=== PATIENT | female | born 1985 | race Caucasian/White ===

== ENCOUNTER → 2021-05-02 12:30 | Outpatient (CLI) | payer SELFPAY ==
--- NOTE | 2021-05-02 12:40 | DI.US.S_ITS ---
PROCEDURE: US OB <= 14 WEEKS FETUS INDICATIONS: INITIAL VIABILITY DATING OUTSIDE/PRIOR DATING DATA: Last menstrual period (LMP): 03/06/2021 LMP-based estimated date of delivery (MIRTA): 12/11/2021. First dating scan (date and location): 05/02/2021. Estimated date of delivery (MIRTA) from first dating scan: 12/14/2021. TECHNIQUE: Real-time scanning was performed of the fetus and maternal pelvic organs, with image documentation. Endovaginal scanning was also performed to better visualize the fetus and maternal ovaries. COMPARISON: None. FINDINGS: Embryo: [place]-rump length measures 1.4 cm corresponding to 7 weeks 5 days. Heart rate: 155 beats per minute. Measurement variability in dating: +/- 4 weeks by LMP, +/- 7 days by mean sac diameter (use before 6 weeks gestation if crown-rump length not able to be measured), +/- 5 days by crown-rump length (up to 8 weeks 6 days gestation), +/- 7 days by crown-rump length (up to 13 weeks 6 days gestation). Maternal organs: Ovaries not identified. No adnexal masses seen. . IMPRESSION: 7 week 5 day single living IUP. Dictated by: Enrique Charles RRA Interpreted: Ariel Ruiz MD on 05/02/2021 at 13:13 Transcribed by: EDUARDA on 05/02/2021 at 13:14 Approved by: Ariel Ruiz M.D. on 05/02/2021 at 14:32
== END ==
PROVIDERS: Family Provider Nurse Practitioner Family; PCP Nurse Practitioner Family; Referring Provider Obstetrics & Gynecology; Visit Provider Obstetrics & Gynecology
DX: Z34.81 Encounter for supervision of other normal pregnancy, first trimester (principal); Z3A.01 Less than 8 weeks gestation of pregnancy
CPT/HCPCS: 76801; 76817

== ENCOUNTER → 2021-06-11 11:15 | Outpatient (CLI) | payer SELFPAY ==
[2021-06-11 13:29] LABS: Free T4, Direct Thyroxine 0.91 ng/dL (0.78-2.19)
[2021-06-11 13:43] LABS: Thyroid Stimulating Hormone 0.265 uIU/mL (0.47-4.68)
== END ==
PROVIDERS: Family Provider Nurse Practitioner Family; PCP Family Medicine; Referring Provider Obstetrics & Gynecology; Visit Provider Obstetrics & Gynecology
DX: Z34.81 Encounter for supervision of other normal pregnancy, first trimester (principal)
CPT/HCPCS: 36415; 84439; 84443

== ENCOUNTER → 2021-07-12 12:32 | Outpatient (CLI) | payer MEDICAID, SELFPAY ==
[2021-07-12 13:30] LABS: Add Manual Diff / Slide Review NO; Basophils Absolute Auto 0 /uL (0-100); Basophils Percent Auto 0.3 % (0-2); Eosinophils Absolute Auto 200 /uL (0-450); Eosinophils Percent Auto 3.4 % (2-4); Hemoglobin 12.9 g/dL (12.0-16.0); Lymphocytes Absolute Auto 1400 /uL (1100-4500); Lymphocytes Percent Auto 19.3 % (25-40); Mean Corpuscular Hemoglobin 31.1 PG (26-34); Mean Corpuscular Volume 88.8 fL (80-100); Monocytes Absolute Auto 400 /uL (0-900); Monocytes Percent Auto 5.3 % (3-14); Neutrophils Absolute Auto 5200 /uL (1500-7000); Neutrophils Percent Auto 71.7 % (50-75); Platelet Count 246 X10^3/uL (150-400); Red Blood Cell Count 4.17 X10^6/uL (4.0-5.2); Red Cell Distribution Width 12.9 % (11.6-14.8); White Blood Cell Count 7.3 X10^3/uL (4.5-11.0)
[2021-07-12 13:42] LABS: Appearance Urine UA CLEAR; Bilirubin Urine UA NEGATIVE (NEGATIVE); Color Urine UA YELLOW; Glucose Urine UA NEGATIVE (Negative); Ketones Urine UA NEGATIVE (NEGATIVE); Leukocyte Esterase Urine UA TRACE (NEGATIVE); Nitrite Urine UA NEGATIVE (Negative); Occult Blood Urine UA NEGATIVE (Negative); Protein Urine UA TRACE (Negative); Specific Gravity Urine UA 1.025 (1.000-1.035); Urobilinogen Urine UA 0.2 E.U./dL (0.2)
[2021-07-12 13:54] LABS: Bacteria Urine None Seen; Culture Indicated Urine Cult Not Indicated; RBC Urine None Seen (0-5/HPF); Squamous Epithelial Cell Urine 10-30 /HPF (0-5/HPF); WBC Urine None Seen (0-5/HPF)
[2021-07-12 15:36] LABS: Hepatitis B Surface Antigen NEGATIVE s/c (NEGATIVE); Rubella Antibody IgG 3.7 IU/mL (>15)
[2021-07-12 15:54] LABS: HIV 1 & 2 Ab/Ag 4th Gen Combo NEGATIVE (NEGATIVE); Hep C Virus Ab w/Reflex Quant NEGATIVE s/c (NEGATIVE)
[2021-07-13 08:21] LABS: Varicella IgG Antibody 1429 index (Immune >165)
[2021-07-13 14:13] LABS: HSV 2 IGG AB 1.66 index (0.00-0.90); RPR Screen Non Reactive (Non Reactive)
[2021-07-14 19:47] LABS: AFP, Serum 45.5 ng/mL (.); Estriol, Free 1.42 ng/mL (.); Inhibin A, Dimeric 171.87 pg/mL (.); Inhibin A, MoM 1.46 (.); Maternal Ethnicity Caucasian (.); Maternal Weight 261 lbs (.); Number of Fetuses No (.); OSBR Risk 1 IN 3810 (.); Results Report (.); Test Results *Screen Negative* (.); hCG, MoM 0.57 (.); hCG, Serum 11331 mIU/mL (.)
== END ==
PROVIDERS: Family Provider Nurse Practitioner Family; PCP Family Medicine; Referring Provider Obstetrics & Gynecology; Visit Provider Obstetrics & Gynecology
DX: Z34.82 Encounter for supervision of other normal pregnancy, second trimester; Z3A.18 18 weeks gestation of pregnancy; Z34.81 Encounter for supervision of other normal pregnancy, first trimester
CPT/HCPCS: 36415; 80055; 81003; 81015; 82105; 82677; 84702; 86336; 86695; 86696; 86787; 86803; 86850; 86900; 86901; 87086; 87389

== ENCOUNTER → 2021-08-02 11:39 | Outpatient (CLI) | payer MEDICAID, SELFPAY ==
--- NOTE | 2021-08-02 11:40 | DI.US.S_ITS ---
PROCEDURE: US OB >= 14 WEEKS FETUS INDICATIONS: anatomy scan OUTSIDE/PRIOR DATING DATA: Last menstrual period (LMP): 03/06/2021. LMP-based estimated date of delivery (MIRTA): 12/11/2021. First dating scan (date and location): 05/02/2021. Estimated date of delivery (MIRTA) from first dating scan: 12/14/2021. TECHNIQUE: Real-time scanning was performed of the fetus, with image documentation and biometric measurements. COMPARISON: [facility], US, OB >= 14 WEEKS FETUS, 07/12/2021, 13:59. FINDINGS: General: A single living intrauterine gestation is present. Presentation: Breech. Placenta: Placental position is anterior , without previa. Amniotic fluid index: 14.7 cm, normal range is 5-24 cm. heart rate: 162 beats per minute. Maternal cervical canal: 4.5 cm long. Normal lower limit is 2.5 cm. biometrics: Biparietal diameter: 5.0 cm 21 weeks 0 days Head circumference: 18.7 cm 21 weeks 0 days Abdominal circumference: 16.2 cm 21 weeks 2 days Femur length: 3.5 cm 21 weeks 0 days Composite gestational age from present scan: 21 weeks 1 day Composite gestational age from initial scan: 20 weeks 6 days Estimated weight and percentile: 402 g 61st percentile Anatomic survey: Neuro: Ventricles are non-dilated at less than 10 mm. Cisterna magna is normal at 3-11 mm. Cerebellum is normal in size and morphology. Nuchal skin fold: Normal at less than 6 mm between 14-21 weeks gestational age. Face: Nose and lips, facial profile are normal. Spine: Not well visualized Heart not well visualized. Diaphragm: Diaphragm is intact. Stomach: Not well visualized Kidneys: Not well visualized Cord: Not well visualized. 2 vessel cord appears to be present. Bladder: Normal in size. Extremities: Hands and feet of the right upper limb are not well visualized. Left upper limb is not well seen. IMPRESSION: Single live intrauterine with ultrasound gestational age today of 20 weeks 5 days. There is appropriate interval growth. Multiple portions of the anatomic survey are not well visualized. Short interval imaging follow-up is recommended for additional evaluation. We strive to produce accurate, complete, and clear reports of imaging services. To assist us in improving patient care, this report was composed using standard report templates and voice recognition software. Therefore, it may contain abnormal punctuation, insertions and/or omissions. Occasional wrong-word or sound-alike substitutions may occur. Though we review the report and make efforts to correct it, we do recommend that the report be read carefully in proper context to recognize any text inaccuracies. Dictated by: Dionne rKishnan M.D. on 08/02/2021 at 17:20 Approved by: Dionne Krishnan M.D. on 08/02/2021 at 17:23
== END ==
PROVIDERS: Family Provider Nurse Practitioner Family; PCP Family Medicine; Referring Provider Obstetrics & Gynecology; Visit Provider Obstetrics & Gynecology
DX: Z34.82 Encounter for supervision of other normal pregnancy, second trimester (principal); Z3A.20 20 weeks gestation of pregnancy
CPT/HCPCS: 76811

== ENCOUNTER → 2021-09-05 11:46 | Outpatient (CLI) | payer MEDICAID, SELFPAY ==
[2021-09-05 12:28] LABS: Hematocrit 37.2 % (36-46); Hemoglobin 12.8 g/dL (12.0-16.0)
== END ==
PROVIDERS: PCP Family Medicine; Referring Provider Obstetrics & Gynecology; Visit Provider Obstetrics & Gynecology
DX: Z34.82 Encounter for supervision of other normal pregnancy, second trimester (principal); Z3A.26 26 weeks gestation of pregnancy
CPT/HCPCS: 36415; 82948; 85014; 85018; 86850

== ENCOUNTER 2021-09-18 15:33 | Observation (INO) | payer MEDICAID, SELFPAY ==
[2021-09-18 16:35] LABS: Add Manual Diff / Slide Review NO; Basophils Absolute Auto 100 /uL (0-100); Basophils Percent Auto 0.6 % (0-2); Eosinophils Absolute Auto 200 /uL (0-450); Eosinophils Percent Auto 2.1 % (2-4); Hematocrit 36.4 % (36-46); Hemoglobin 12.1 g/dL (12.0-16.0); Lymphocytes Absolute Auto 1700 /uL (1100-4500); Mean Corpuscular HGB Conc 33.2 % (30-36); Mean Corpuscular Hemoglobin 30.5 PG (26-34); Mean Corpuscular Volume 91.6 fL (80-100); Monocytes Absolute Auto 500 /uL (0-900); Monocytes Percent Auto 5.3 % (3-14); Neutrophils Absolute Auto 7400 /uL (1500-7000); Platelet Count 261 X10^3/uL (150-400); Red Blood Cell Count 3.97 X10^6/uL (4.0-5.2); Red Cell Distribution Width 13.9 % (11.6-14.8); White Blood Cell Count 9.9 X10^3/uL (4.5-11.0)
[2021-09-18 16:57] LABS: Creatinine Urine Random 9.6 mg/dL; Protein (Total) Urine Random 13 mg/dL (0-12); Protein Creatinine Ratio Urine 1.35 GRAM/24H
[2021-09-18 17:13] LABS: Free T4, Direct Thyroxine 1.02 ng/dL (0.78-2.19)
[2021-09-18 17:27] LABS: Thyroid Stimulating Hormone 0.086 uIU/mL (0.47-4.68)
[2021-09-18 17:46] LABS: Aspartate Aminotransferase 17 IU/L (14-36); BUN Creatinine Ratio 10.9 (6-22); Blood Urea Nitrogen 5 mg/dL (7-17); Estimated Glomerular Filt Rate > 60.0 mL/min (>60); Uric Acid 3.1 mg/dL (2.5-6.2)
== END 2021-09-18 17:50 | disposition home or self-care (01) ==
PROVIDERS: Admitting Provider Obstetrics & Gynecology; PCP Family Medicine; Referring Provider Obstetrics & Gynecology; Visit Provider Obstetrics & Gynecology
DX: O13.3 Gestational [pregnancy-induced] hypertension without significant proteinuria, third trimester (principal); O99.283 Endocrine, nutritional and metabolic diseases complicating pregnancy, third trimester; E07.9 Disorder of thyroid, unspecified; Z3A.28 28 weeks gestation of pregnancy
CPT/HCPCS: 36415; 59025; 59050; 82570; 84156; 84439; 84443; 84450; 84550; 85025; G0378; G0379

== ENCOUNTER 2021-10-04 15:48 | Outpatient (CLI) | payer MEDICAID, SELFPAY | END 2021-10-04 16:45 | disposition home or self-care (01) | LOC: OB 10-09 07:43 | PROVIDERS: PCP Family Medicine; Referring Provider Obstetrics & Gynecology; Visit Provider Obstetrics & Gynecology | DX: O10.913 Unspecified pre-existing hypertension complicating pregnancy, third trimester (principal); O99.333 Smoking (tobacco) complicating pregnancy, third trimester; F17.210 Nicotine dependence, cigarettes, uncomplicated; O99.283 Endocrine, nutritional and metabolic diseases complicating pregnancy, third trimester; E07.9 Disorder of thyroid, unspecified; Z3A.30 30 weeks gestation of pregnancy | CPT/HCPCS: 59025; 87491; 87591; G0378; G0379 ==

== ENCOUNTER → 2021-10-04 19:34 | Outpatient (ROUT) | payer MEDICAID, SELFPAY ==
[2021-10-04 21:15] LABS: Urine N gonorrhoeae NOT DETECTED
[2021-10-04 21:32] LABS: Urine Chlamydia NOT DETECTED
== END ==
PROVIDERS: PCP Family Medicine; Visit Provider Obstetrics & Gynecology
DX: Z34.83 Encounter for supervision of other normal pregnancy, third trimester (principal); Z3A.30 30 weeks gestation of pregnancy
CPT/HCPCS: 87491; 87591

== ENCOUNTER 2021-10-11 10:42 | Outpatient (CLI) | payer MEDICAID, SELFPAY ==
--- NOTE | 2021-10-11 11:57 | P.TNLD_ITS ---
Visit Information Visit Information Date of evaluation: 10/11/21 Primary OB Provider: Grisel Foster On-call OB Provider: Cecelia Calzada Reason for Evaluation: Yes non-stress test Comments/Additional reasons for admission: 36-year-old at 31 weeks and 2 days here for NST for 2 vessel cord, hypothyroidism and gestational hypertension. Vital Signs Vital Signs: Temperature 98.0? blood pressure 116/66 heart rate 78 PFSH Medical History Abnormal Pap smear of cervix (~2012) Anxiety (~2000) Chicken pox (~1995) Constipation Depression (~2000) Diverticulitis (~2020) Frequent headaches Genital warts Heavy menstrual period (~1997) Hemorrhoid (~2013) Human papilloma virus Hypertension (~2013) Hypertension affecting in second trimester (~2013) Hypothyroid (~2006) Painful menstrual periods depression (~2014) Psoriasis (~2013) PTSD (post-traumatic stress disorder) (~1999) Surgical History Anesthesia History of carpal tunnel repair (~2009) History of colposcopy (~2008) History of surgical removal of ganglion cyst Status post appendectomy (~12/1999) [place] teeth extracted (~2003) Family History Father Age: 65 Hypertension High cholesterol Mental health problem Grandmother Cancer Diabetes mellitus Heart disease Hypertension Mother Age: 59 Breast cancer Heart disease Hypertension High cholesterol Mental health problem Stroke Sister Age: 37 Hypertension Grandfather Alzheimer's dementia Grandmother Family history unknown Grandfather Family history unknown Social History marital status: number of children: 1 household members: spouse, family (Her mother.) and children lives independently: Yes caregiver/support person: No pets and animals: Yes (1 cat, 1 dog, 2 rats:) education level: high school (GED.) occupational status: unemployed current occupational exposures/hazards: No special leland needs: No seatbelt use: always do you feel safe at home: Yes Smoking Status: Current some day smoker (has cut way back, has patches. Currently 2-3 cigs/day.) Tobacco: How many years used: 10 quit status: considering quitting second hand exposure: No (Her mom smokes outside.) alcohol intake: former (Pre-: 3 x / week, 3-6 beers.) substance use type: marijuana (Smokes marijuana: daily, a couple puffs. Helps w/ nausea & sleep.) during the past year weight has: remained stable well-balanced diet: about half the time daily servings fruits/ve-4 caffeine: Yes (1-2 cups coffee/day.) Type(s) of exercise: walking and normal ROM and activity (Active with yard work on 6 [place]. Thinking about joining a gym to swim.) frequency: 3-4 times per week duration: 15-30 minutes/day Evaluation Evaluation Baseline heart rate: 140 Variability: Moderate (11-25) monitor accelerations: Present Monitor Decelerations: Absent Category of Tracing: Reactive Diagnosis, Plan/Disposition Final Diagnosis (1) 31 weeks gestation of : Status: Acute (2) Hypertension: Status: Acute (3) Hypothyroid in , antepartum: Status: Acute (4) Two vessel cord: Status: Acute Plan/Disposition Plan: 36-year-old at 31 weeks and 2 days with complicated by gestational hypertension, hypothyroidism and 2 vessel cord. NST reactive today. Patient was without complaints. Follow-up in clinic as scheduled return if needed. OB Disposition: home
== END 2021-10-11 12:05 | disposition home or self-care (01) ==
LOC: LABOR 11:19 → OB 10-16 07:30
PROVIDERS: PCP Family Medicine; Referring Provider Family Medicine; Visit Provider Family Medicine
DX: O13.3 Gestational [pregnancy-induced] hypertension without significant proteinuria, third trimester (principal); O99.283 Endocrine, nutritional and metabolic diseases complicating pregnancy, third trimester; O35.8XX0 Maternal care for other (suspected) fetal abnormality and damage, not applicable or unspecified; E03.9 Hypothyroidism, unspecified; Z3A.31 31 weeks gestation of pregnancy
CPT/HCPCS: 59025; G0378; G0379

== ENCOUNTER 2021-10-18 14:07 | Observation (INO) | payer MEDICAID, SELFPAY | END 2021-10-18 14:10 | disposition home or self-care (01) | PROVIDERS: Admitting Provider Obstetrics & Gynecology; PCP Family Medicine; Referring Provider Obstetrics & Gynecology; Visit Provider Obstetrics & Gynecology | DX: O13.2 Gestational [pregnancy-induced] hypertension without significant proteinuria, second trimester (principal); O99.282 Endocrine, nutritional and metabolic diseases complicating pregnancy, second trimester; E07.9 Disorder of thyroid, unspecified; O35.8XX0 Maternal care for other (suspected) fetal abnormality and damage, not applicable or unspecified; Z3A.23 23 weeks gestation of pregnancy | CPT/HCPCS: 59025; G0378; G0379 ==

== ENCOUNTER 2021-10-25 12:00 | Outpatient (CLI) | payer MEDICARE, MEDICAID, SELFPAY ==
--- NOTE | 2021-10-25 13:22 | PM.OBTRLD ---
Visit Information Visit Information Date of evaluation: 10/25/21 Primary OB Provider: Grisel Foster On-call OB Provider: Cecelia Calzada Reason for Evaluation: Yes non-stress test Comments/Additional reasons for admission: 36-year-old at 33 weeks and 2 days here for NST for 2 vessel cord, hypothyroidism and gestational hypertension. Vital Signs Vital Signs: Blood pressure 129/84 heart rate 84 PFSH Medical History Abnormal Pap smear of cervix (~2012) Anxiety (~2000) Chicken pox (~1995) Constipation Depression (~2000) Diverticulitis (~2020) Frequent headaches Genital warts Heavy menstrual period (~1997) Hemorrhoid (~2013) Human papilloma virus Hypertension (~2013) Hypertension affecting in second trimester (~2013) Hypothyroid (~2006) Painful menstrual periods depression (~2014) Psoriasis (~2013) PTSD (post-traumatic stress disorder) (~1999) Surgical History Anesthesia History of carpal tunnel repair (~2009) History of colposcopy (~2008) History of surgical removal of ganglion cyst Status post appendectomy (~12/1999) [place] teeth extracted (~2003) Family History Father Age: 65 Hypertension High cholesterol Mental health problem Grandmother Cancer Diabetes mellitus Heart disease Hypertension Mother Age: 59 Breast cancer Heart disease Hypertension High cholesterol Mental health problem Stroke Sister Age: 37 Hypertension Grandfather Alzheimer's dementia Grandmother Family history unknown Grandfather Family history unknown Social History marital status: number of children: 1 household members: spouse, family (Her mother.) and children lives independently: Yes caregiver/support person: No pets and animals: Yes (1 cat, 1 dog, 2 rats:) education level: high school (GED.) occupational status: unemployed current occupational exposures/hazards: No special leland needs: No seatbelt use: always do you feel safe at home: Yes Smoking Status: Current some day smoker (has cut way back, has patches. Currently 2-3 cigs/day.) Tobacco: How many years used: 10 quit status: considering quitting second hand exposure: No (Her mom smokes outside.) alcohol intake: former (Pre-: 3 x / week, 3-6 beers.) substance use type: marijuana (Smokes marijuana: daily, a couple puffs. Helps w/ nausea & sleep.) during the past year weight has: remained stable well-balanced diet: about half the time daily servings fruits/ve-4 caffeine: Yes (1-2 cups coffee/day.) Type(s) of exercise: walking and normal ROM and activity (Active with yard work on 6 acres. Thinking about joining a gym to swim.) frequency: 3-4 times per week duration: 15-30 minutes/day Evaluation Evaluation Baseline heart rate: 140 Variability: Moderate (11-25) monitor accelerations: Present Monitor Decelerations: Absent Category of Tracing: Reactive Diagnosis, Plan/Disposition Final Diagnosis (1) Hypertension affecting : Status: Acute (2) Two vessel cord: Status: Acute (3) Hypothyroid in , antepartum: Status: Acute (4) 33 weeks gestation of : Status: Acute Plan/Disposition Plan: 36-year-old at 33 weeks and 2 days with complicated by gestational hypertension, hypothyroidism and 2 vessel cord.? NST reactive today.? Patient was without complaints.? Follow-up in clinic as scheduled return if needed.? OB Disposition: home
== END 2021-10-25 13:12 | disposition home or self-care (01) ==
LOC: LABOR 13:06 → OB 10-30 07:58
PROVIDERS: PCP Family Medicine; Referring Provider Obstetrics & Gynecology; Visit Provider Obstetrics & Gynecology
DX: O13.3 Gestational [pregnancy-induced] hypertension without significant proteinuria, third trimester (principal); O35.8XX0 Maternal care for other (suspected) fetal abnormality and damage, not applicable or unspecified; O99.283 Endocrine, nutritional and metabolic diseases complicating pregnancy, third trimester; E03.9 Hypothyroidism, unspecified; Z3A.33 33 weeks gestation of pregnancy
CPT/HCPCS: 59025; G0378; G0379

== ENCOUNTER 2021-10-28 16:55 | Outpatient (CLI) | payer MEDICARE, MEDICAID, SELFPAY ==
[2021-10-28] MEDS: NIFEdipine 10 MG CAPSULE PO (17:45)
--- NOTE | 2021-10-28 18:02 | PM.OBHP.IH.1 ---
OB HPI Date/Time Date of admission: 10/28/21 Date Patient Seen: 10/28/21 Time Patient Seen: 18:03 History of Present Condition Chief complaint: high BP concerns MIRTA Calculator Estimated Delivery Date Method Current WG Current Estimate 12/11/21 LMP (Certain) 33w 5d Other Estimates 12/14/21 Ultrasound #1 33w 2d 12/14/21 Ultrasound #2 33w 2d Estimated Gestational Age (weeks): 33 : 2 Para: 1 Narrative: This patient is a 36yo @33+5 by LMP concordant with 1st tri US, presenting to the center with preeclampsia with severe features. The patient reports that she was being managed for elevated BPs as an outpatient since the late 2nd trimester, on labetalol 100mg BID to good effect. She reports that she felt well until a few weeks ago, when she developed intermittent nausea. For the past few days she has had intermittent headaches, and this morning developed spots in her vision, RUQ discomfort and a sensation of fullness in her head. Her BPs at home were newly 150s/90s, and she presented to the center. She reports good movement, no LOF or VB, and no contractions. She has a history of HTN at the end of her last though no preeclampsia diagnosis, and she delivered vaginally at term. Records review indicates a urine protein/creatinine ratio of 1.35 on 09/18/21. The patient passed her glucose screen, and has had an otherwise uncomplicated . She has a history of hypothyroidism but denies any other significant medical, surgical, or family history. She has not been on baby ASA. care: good care, initiated at week # (9) and pounds weight gain Dating criteria OB: LMP confirmed by 1st trimester US Ultrasounds: abnormal US findings (per report, poor visualization of upper extremities.) Obstetrical complications: preeclampsia Medical complications OB: none External History : 2 Para: 1 Estimated Date of Delivery: 03/06/21 Preadmission Labs Last OB Lab Results: Blood Type O Negative 07/12/21 12:48 07/12/21 Antibody Screen Negative 09/05/21 11:54 09/05/21 Hematocrit 36.4 % (36-46) 09/18/21 16:20 09/18/21 Hemoglobin 12.1 g/dL (12.0-16.0) 09/18/21 16:20 09/18/21 Hepatitis B Surface Antigen Negative s/c (NEGATIVE) 07/12/21 12:48 07/12/21 Hepatitis C Antibody Negative s/c (NEGATIVE) 07/12/21 12:48 07/12/21 Rubella Antibody 3.7 IU/mL (>15) L 07/12/21 12:48 07/12/21 Varicella-Zoster IgG Antibody 1429 index (Immune >165) 07/12/21 12:48 07/12/21 Glucose Tolerance Testin hr (71) -: Chlamydia screen: negative, Gonorrhea screen: negative and Urine: negative Genetic Screens: Quad screen: Normal External Labs -: Urine: negative Prior (ies) Past Pregnancies Del. 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 induced hyper- [place]ad[place] Delivery Date: 07/08/14 Last Updated by: Basia Kuo R.N. Bedrest x 1 month for HTN. Induction for high BP, 5 day process. Tight nuchal. Tear with repair, healed well. Passed out in bathroom first time up. PPD with BF challenges: hard for her emotionally. Mirena IUD @ 6wks PP, made PPD worse. Evaluation Evaluation Baseline heart rate: 140 Variability: Average (6-10) monitor accelerations: Absent Monitor Decelerations: Absent Status: Category l Comments: Monitoring limited by body habitus and positioning. Bedside ultrasound performed, though significantly limited by body habitus, positioning, and copious movement. BPP 8/8, JACINTA 32. EFW 2470g, 70%. Trevin breech to transverse presentation, variable during exam. Anterior placenta. [facility] Medical History Abnormal Pap smear of cervix (~2012) Anxiety (~2000) Chicken pox (~1995) Constipation Depression (~2000) Diverticulitis (~2020) Frequent headaches Genital warts Heavy menstrual period (~1997) Hemorrhoid (~2013) Human papilloma virus Hypertension (~2013) Hypertension affecting in second trimester (~2013) Hypothyroid (~2006) Painful menstrual periods depression (~2014) Psoriasis (~2013) PTSD (post-traumatic stress disorder) (~1999) Surgical History Anesthesia History of carpal tunnel repair (~2009) History of colposcopy (~2008) History of surgical removal of ganglion cyst Status post appendectomy (~12/1999) [place] teeth extracted (~2003) Family History Father Age: 65 Hypertension High cholesterol Mental health problem Grandmother Cancer Diabetes mellitus Heart disease Hypertension Mother Age: 59 Breast cancer Heart disease Hypertension High cholesterol Mental health problem Stroke Sister Age: 37 Hypertension Grandfather Alzheimer's dementia Grandmother Family history unknown Grandfather Family history unknown Social History marital status: number of children: 1 household members: spouse, family (Her mother.) and children lives independently: Yes caregiver/support person: No pets and animals: Yes (1 cat, 1 dog, 2 rats:) education level: high school (GED.) occupational status: unemployed current occupational exposures/hazards: No special leland needs: No seatbelt use: always do you feel safe at home: Yes Smoking Status: Current some day smoker (has cut way back, has patches. Currently 2-3 cigs/day.) Tobacco: How many years used: 10 quit status: considering quitting second hand exposure: No (Her mom smokes outside.) alcohol intake: former (Pre-: 3 x / week, 3-6 beers.) substance use type: marijuana (Smokes marijuana: daily, a couple puffs. Helps w/ nausea & sleep.) during the past year weight has: remained stable well-balanced diet: about half the time daily servings fruits/ve-4 caffeine: Yes (1-2 cups coffee/day.) Type(s) of exercise: walking and normal ROM and activity (Active with yard work on [place]. Thinking about joining a gym to swim.) frequency: 3-4 times per week duration: 15-30 minutes/day Meds Home Medications and Allergies Home Medications Medication Instructions Recorded Confirmed Type hydrocortisone 2.5 % topical cream 1 gm TOPICAL BIDP PRN #30 gm 11/15/16 04/28/22 Rx levothyroxine 175 mcg capsule 175 mcg PO DAILY 04/12/21 10/18/21 History liothyronine 25 mcg tablet 25 mcg PO DAILY 04/12/21 10/18/21 History prenat.vits,kanchan,ohc-jtyd-yqfhu 1 tab PO DAILY 04/12/21 10/18/21 History labetalol 100 mg tablet 100 mg PO BID #180 tab 09/05/21 10/18/21 Rx valacyclovir 500 mg tablet 500 mg PO DAILY #30 tab 09/05/21 10/18/21 Rx (Valtrex) hydrocortisone 2.5 % topical cream 1 applic NE BID-QID PRN #30 g 10/18/21 10/18/21 Rx with perineal applicator (Anusol-HC) Allergies Allergy/AdvReac Type Severity Reaction Status Date / Time No Known Drug Allergies Allergy Verified 10/18/21 13:14 Review of Systems Constitutional Constitutional: Reports system reviewed and no additional complaints, except as documented Cardiovascular Cardiovascular: Reports system reviewed and no additional complaints, except as documented Respiratory Respiratory: Reports system reviewed and no additional complaints, except as documented Gastrointestinal Gastrointestinal: Reports as per HPI Genitourinary Genitourinary: Reports as per HPI Musculoskeletal Musculoskeletal: Reports as per HPI Neurologic Neurologic: Reports as per HPI OB Exam Resp Effort & Inspection: normal respiratory effort Auscultation: clear to auscultation bilaterally Cardio Rate: regular rate Rhythm: regular rhythm Extremities Lower extremity: Yes edema Laterality: bilateral edema degree: 3+ DTR's: Rt Patellar: 2+ and Lt Patellar: 2+ GI Palpation: Yes soft and Yes tender (Mild RUQ tenderness) Assessment and Plan Assessment and Plan Assessment and Plan narrative: This patient is admitted with sustained severe range blood pressures. Her blood pressure has been brought below the severe range with 10mg PO IR nifedipine, as staff is still attempting to start an IV. - Patient for 4g MgSo4 loading dose, 2g/hr - CBC, CMP, uric acid, LDH, urine protein/creatinine ratio sent - 12mg IM betamethasone now - Covid and GBS tests to be collected - BPs q15min, cEFM, toco - Initiating transfer to tertiary care [place] with NICU
[2021-10-28] MEDS: BETAMETHASONE 30 MG/5 ML MDV 12 MG IM (18:40)
[2021-10-28] MEDS: LACTATED RINGERS 1,000 ML 100 ML IV (19:00)
[2021-10-28 19:02] LABS: Add Manual Diff / Slide Review NO; Basophils Absolute Auto 100 /uL (0-100); Basophils Percent Auto 0.7 % (0-2); Eosinophils Absolute Auto 200 /uL (0-450); Eosinophils Percent Auto 1.6 % (2-4); Hemoglobin 13.1 g/dL (12.0-16.0); Lymphocytes Absolute Auto 1800 /uL (1100-4500); Lymphocytes Percent Auto 17.4 % (25-40); Mean Corpuscular HGB Conc 33.7 % (30-36); Mean Corpuscular Hemoglobin 29.9 PG (26-34); Mean Corpuscular Volume 88.8 fL (80-100); Monocytes Absolute Auto 500 /uL (0-900); Monocytes Percent Auto 4.8 % (3-14); Neutrophils Absolute Auto 7900 /uL (1500-7000); Neutrophils Percent Auto 75.5 % (50-75); Platelet Count 265 X10^3/uL (150-400); Red Cell Distribution Width 13.6 % (11.6-14.8); White Blood Cell Count 10.4 X10^3/uL (4.5-11.0)
[2021-10-28] MEDS: MAGNESIUM SULFATE 4 GM/100 ML PIGGYBACK IV (19:06)
[2021-10-28 19:25] LABS: COVID19 -Nasal RAPID Negative (Negative)
[2021-10-28 19:25] LABS: Alanine Aminotransferase 12 IU/L (<35); Albumin 3.8 g/dL (3.5-5.0); Albumin Globulin Ratio 1.1 (1.0-2.8); Alkaline Phosphatase 105 U/L (38-126); Aspartate Aminotransferase 17 IU/L (14-36); BUN Creatinine Ratio 15.9 (6-22); Bilirubin Total 0.3 mg/dL (0.2-1.3); Blood Urea Nitrogen 7 mg/dL (7-17); Calcium 9.7 mg/dL (8.4-10.2); Carbon Dioxide 23 mmol/L (22-32); Chloride 107 mmol/L (98-107); Estimated Glomerular Filt Rate > 60 mL/min (>60); Globulin 3.4 g/dL (1.7-4.1); Glucose 91 mg/dL (70-100); HEMOLYSIS < 15 (0-50); Lactate Dehydrogenase 336 U/L (313-618); Potassium 3.9 mmol/L (3.4-5.1); Sodium 135 mmol/L (137-145); Total Protein 7.2 g/dL (6.3-8.2); Uric Acid 3.2 mg/dL (2.5-6.2)
[2021-10-28 19:25] LABS: Creatinine Urine Random 22.6 mg/dL; Protein (Total) Urine Random 12 mg/dL (0-12); Protein Creatinine Ratio Urine 0.53 GRAM/24H
[2021-10-28] MEDS: MAGNESIUM SULFATE 20 GM/500 ML IV.SOLN IV (20:20)
[2021-10-28] MEDS: LABETALOL 100 MG TABLET PO (20:40)
[2021-10-28 21:35] LABS: Strep Grp B PCR NEG for Grp B Strep
[2021-10-29 00:54] LABS: UR Morphine/Opiate cutoff 300 Negative (Negative); Ur Creatinine 20 (Normal); Ur Specific Gravity 1.015 (Normal); Urine Amphetamines Negative (Negative); Urine Barbiturates Negative (Negative); Urine Benzodiazepines Negative (Negative); Urine Cocaine Negative (Negative); Urine MDMA Negative (Negative); Urine Methadone Negative (Negative); Urine Methamphetamines Negative (Negative); Urine Oxycodone Negative (Negative); Urine Phencyclidine Negative (Negative); Urine Tetrahydrocannabinol Negative (Negative); Urine Tricyclic Antidepressant Negative (Negative); Urine pH 5 (Normal)
== END 2021-10-28 22:35 | disposition home or self-care (01) ==
LOC: LABOR 18:13 → OB 10-30 08:01
PROVIDERS: PCP Family Medicine; Referring Provider Obstetrics & Gynecology; Visit Provider Obstetrics & Gynecology
DX: O14.13 Severe pre-eclampsia, third trimester (principal); Z3A.33 33 weeks gestation of pregnancy; Z20.822 Contact with and (suspected) exposure to COVID-19
CPT/HCPCS: 59025; 59050; 76815; 80053; 80305; 82570; 83615; 84156; 84550; 85025; 86850; 86870; 86900; 86901; 87081; 87147; 87635; 87653; 96360; C9803; G0378; G0379; J0702; J3475

== ENCOUNTER 2021-11-02 10:05 | Observation (INO) | payer MEDICARE, MEDICAID, SELFPAY ==
--- NOTE | 2021-11-02 11:49 | DI.US.S_ITS ---
PROCEDURE: US OB BIOPHYSICAL PROFILE INDICATIONS: DECREASED MOVEMENT; FLUID CHECK OUTSIDE/PRIOR DATING DATA: Last menstrual period (LMP): 03/06/2021. LMP-based estimated date of delivery (MIRTA): 12/11/2021. First dating scan (date and location): 05/02/2021. Estimated date of delivery (MIRTA) from first dating scan: 12/14/2021. TECHNIQUE: Real-time scanning was performed of the fetus, with image documentation and biometric measurements. Biophysical profile was also obtained. COMPARISON: [facility], , US OB >= 14 WEEKS FETUS, 10/18/2021, 13:55. [facility], , US OB >= 14 WEEKS FETUS, 10/04/2021, 15:34. [facility], , US OB >= 14 WEEKS FETUS, 09/05/2021, 11:33. [facility], US OB >= 14 WEEKS FETUS, 08/02/2021, 12:10. [facility], , US OB >= 14 WEEKS FETUS, 07/12/2021, 13:59. [facility], , US OB <= 14 WEEKS FETUS, 06/11/2021, 11:10. [facility], , US OB <= 14 WEEKS FETUS, 05/10/2021, 11:03. [facility], , US OB <= 14 WEEKS FETUS, 05/02/2021, 12:51. FINDINGS: General: A single living intrauterine gestation is present. Presentation: Transverse, head right. Placenta: Placental position is anterior , without previa. Amniotic fluid index: 24.2 cm, normal range is 5-24 cm. Single deepest vertical pocket is 8.8 cm. heart rate: 137 beats per minute. Maternal cervical canal: 4.0 cm long. Normal lower limit is 2.5 cm. biometrics: Composite gestational age from initial ultrasound: 34 weeks 0 days Biophysical profile: Tone: 2 points. Movement: 2 points. Respiration: 2 points. Largest pocket of fluid: 2 points. IMPRESSION: Single live intrauterine with ultrasound gestational age of 34 weeks 0 days. JACINTA 24.2 cm. BPP 01/28 We strive to produce accurate, complete, and clear reports of imaging services. To assist us in improving patient care, this report was composed using standard report templates and voice recognition software. Therefore, it may contain abnormal punctuation, insertions and/or omissions. Occasional wrong-word or sound-alike substitutions may occur. Though we review the report and make efforts to correct it, we do recommend that the report be read carefully in proper context to recognize any text inaccuracies. Dictated by: Dionne Krishnan M.D. on 11/02/2021 at 13:52 Approved by: Dionne Krishnan M.D. on 11/02/2021 at 13:55
--- NOTE | 2021-11-02 22:31 | PM.OBTRLD ---
Visit Information Visit Information Date of evaluation: 11/02/21 Primary OB Provider: Grisel Foster On-call OB Provider: Grisel Foster Reason for Evaluation: Yes non-stress test non-stress test reason: hypertension/pre-eclampsia [facility] Medical History Abnormal Pap smear of cervix (~2012) Anxiety (~2000) Chicken pox (~1995) Constipation Depression (~2000) Diverticulitis (~2020) Frequent headaches Genital warts Heavy menstrual period (~1997) Hemorrhoid (~2013) Human papilloma virus Hypertension (~2013) Hypertension affecting in second trimester (~2013) Hypothyroid (~2006) Painful menstrual periods depression (~2014) Psoriasis (~2013) PTSD (post-traumatic stress disorder) (~1999) Surgical History Anesthesia History of carpal tunnel repair (~2009) History of colposcopy (~2008) History of surgical removal of ganglion cyst Status post appendectomy (~12/1999) [place] teeth extracted (~2003) Family History Father Age: 65 Hypertension High cholesterol Mental health problem Grandmother Cancer Diabetes mellitus Heart disease Hypertension Mother Age: 59 Breast cancer Heart disease Hypertension High cholesterol Mental health problem Stroke Sister Age: 37 Hypertension Grandfather Alzheimer's dementia Grandmother Family history unknown Grandfather Family history unknown Social History marital status: number of children: 1 household members: spouse, family (Her mother.) and children lives independently: Yes caregiver/support person: No pets and animals: Yes (1 cat, 1 dog, 2 rats:) education level: high school (GED.) occupational status: unemployed current occupational exposures/hazards: No special leland needs: No seatbelt use: always do you feel safe at home: Yes Smoking Status: Current some day smoker (has cut way back, has patches. Currently 2-3 cigs/day.) Tobacco: How many years used: 10 quit status: considering quitting second hand exposure: No (Her mom smokes outside.) alcohol intake: former (Pre-: 3 x / week, 3-6 beers.) substance use type: marijuana (Smokes marijuana: daily, a couple puffs. Helps w/ nausea & sleep.) during the past year weight has: remained stable well-balanced diet: about half the time daily servings fruits/ve-4 caffeine: Yes (1-2 cups coffee/day.) Type(s) of exercise: walking and normal ROM and activity (Active with yard work on [place]. Thinking about joining a gym to swim.) frequency: 3-4 times per week duration: 15-30 minutes/day Evaluation Evaluation Baseline heart rate: 135 Variability: Average (6-10) monitor accelerations: Present Monitor Decelerations: Absent Comments: BPP 01/28 JACINTA 20cm Diagnosis, Plan/Disposition Plan/Disposition Plan: Assessment: 36 year old at 34+3 wks gestation with GHTN 2 vessel cord Transverse lie Reassuring BPP Plan: D/C to home on bedrest [facility] Warning signs reviewed F/U 4 days OB Disposition: home
== END 2021-11-02 12:45 | disposition home or self-care (01) ==
PROVIDERS: Admitting Provider Obstetrics & Gynecology; PCP Family Medicine; Referring Provider Obstetrics & Gynecology; Visit Provider Obstetrics & Gynecology
DX: O13.3 Gestational [pregnancy-induced] hypertension without significant proteinuria, third trimester (principal); O35.8XX0 Maternal care for other (suspected) fetal abnormality and damage, not applicable or unspecified; Z3A.34 34 weeks gestation of pregnancy
CPT/HCPCS: 59025; 59050; 76819; G0378; G0379

== ENCOUNTER 2021-11-06 11:32 | Observation (INO) | payer MEDICARE, MEDICAID, SELFPAY ==
[2021-11-06 12:20] LABS: Add Manual Diff / Slide Review NO; Basophils Absolute Auto 100 /uL (0-100); Basophils Percent Auto 0.5 % (0-2); Eosinophils Absolute Auto 200 /uL (0-450); Eosinophils Percent Auto 1.6 % (2-4); Hematocrit 36.2 % (36-46); Hemoglobin 12.4 g/dL (12.0-16.0); Lymphocytes Absolute Auto 1500 /uL (1100-4500); Lymphocytes Percent Auto 14.2 % (25-40); Mean Corpuscular HGB Conc 34.3 % (30-36); Mean Corpuscular Hemoglobin 30.4 PG (26-34); Mean Corpuscular Volume 88.6 fL (80-100); Monocytes Absolute Auto 600 /uL (0-900); Monocytes Percent Auto 6.1 % (3-14); Neutrophils Absolute Auto 8200 /uL (1500-7000); Neutrophils Percent Auto 77.6 % (50-75); Platelet Count 259 X10^3/uL (150-400); Red Blood Cell Count 4.09 X10^6/uL (4.0-5.2); White Blood Cell Count 10.6 X10^3/uL (4.5-11.0)
[2021-11-06 12:29] LABS: Creatinine Urine Random 58.7 mg/dL; Protein (Total) Urine Random 14 mg/dL (0-12); Protein Creatinine Ratio Urine 0.23 GRAM/24H
[2021-11-06 12:32] LABS: Aspartate Aminotransferase 15 IU/L (14-36); BUN Creatinine Ratio 17.8 (6-22); Blood Urea Nitrogen 8 mg/dL (7-17); Estimated Glomerular Filt Rate > 60 mL/min (>60); Uric Acid 3.3 mg/dL (2.5-6.2)
[2021-11-06] MEDS: ACETAMINOPHEN 325 MG TABLET 975 MG PO (13:32)
[2021-11-06 13:33] VITALS: BP 121/59; PULSE 89
[2021-11-06] MEDS: LABETALOL 100 MG TABLET 200 MG PO (13:33)
== END 2021-11-06 13:39 | disposition home or self-care (01) ==
PROVIDERS: Admitting Provider Obstetrics & Gynecology; PCP Family Medicine; Referring Provider Obstetrics & Gynecology; Visit Provider Obstetrics & Gynecology
DX: O10.913 Unspecified pre-existing hypertension complicating pregnancy, third trimester (principal); Z3A.35 35 weeks gestation of pregnancy
CPT/HCPCS: 36415; 59025; 82570; 84156; 84450; 84550; 85025; G0378; G0379

== ENCOUNTER 2021-11-09 11:01 | Outpatient (CLI) | payer MEDICARE, MEDICAID, SELFPAY ==
[2021-11-09 12:19] LABS: Add Manual Diff / Slide Review NO; Basophils Absolute Auto 0 /uL (0-100); Basophils Percent Auto 0.4 % (0-2); Eosinophils Absolute Auto 200 /uL (0-450); Eosinophils Percent Auto 1.5 % (2-4); Hematocrit 36.4 % (36-46); Hemoglobin 12.4 g/dL (12.0-16.0); Lymphocytes Absolute Auto 1500 /uL (1100-4500); Lymphocytes Percent Auto 13.8 % (25-40); Mean Corpuscular HGB Conc 33.9 % (30-36); Mean Corpuscular Hemoglobin 30.1 PG (26-34); Mean Corpuscular Volume 88.7 fL (80-100); Monocytes Absolute Auto 600 /uL (0-900); Monocytes Percent Auto 5.8 % (3-14); Neutrophils Absolute Auto 8300 /uL (1500-7000); Neutrophils Percent Auto 78.5 % (50-75); Platelet Count 253 X10^3/uL (150-400); Red Blood Cell Count 4.11 X10^6/uL (4.0-5.2); Red Cell Distribution Width 14.1 % (11.6-14.8); White Blood Cell Count 10.5 X10^3/uL (4.5-11.0)
[2021-11-09 12:31] LABS: Alanine Aminotransferase 13 IU/L (<35); Albumin 3.4 g/dL (3.5-5.0); Albumin Globulin Ratio 1.1 (1.0-2.8); Alkaline Phosphatase 96 U/L (38-126); Aspartate Aminotransferase 15 IU/L (14-36); BUN Creatinine Ratio 12.7 (6-22); Bilirubin Total 0.2 mg/dL (0.2-1.3); Blood Urea Nitrogen 7 mg/dL (7-17); Calcium 9.4 mg/dL (8.4-10.2); Carbon Dioxide 22 mmol/L (22-32); Chloride 107 mmol/L (98-107); Estimated Glomerular Filt Rate > 60 mL/min (>60); Globulin 3.1 g/dL (1.7-4.1); Glucose 124 mg/dL (70-100); HEMOLYSIS < 15 (0-50); Potassium 3.7 mmol/L (3.4-5.1); Sodium 133 mmol/L (137-145); Total Protein 6.5 g/dL (6.3-8.2)
[2021-11-09 12:52] LABS: Creatinine Urine Random 107.3 mg/dL; Protein (Total) Urine Random 9 mg/dL (0-12); Protein Creatinine Ratio Urine 0.08 GRAM/24H
== END 2021-11-09 13:12 | disposition home or self-care (01) ==
LOC: LABOR 12:05 → OB 11-12 16:02
PROVIDERS: PCP Family Medicine; Referring Provider Obstetrics & Gynecology; Visit Provider Obstetrics & Gynecology
DX: O14.93 Unspecified pre-eclampsia, third trimester (principal); O35.8XX0 Maternal care for other (suspected) fetal abnormality and damage, not applicable or unspecified; Z3A.35 35 weeks gestation of pregnancy
CPT/HCPCS: 36415; 59025; 59050; 80053; 82570; 84156; 85025; G0378; G0379

== ENCOUNTER 2021-11-12 13:06 | Outpatient (CLI) | payer MEDICARE, MEDICAID, SELFPAY | END 2021-11-12 14:28 | disposition home or self-care (01) | LOC: LABOR 13:39 → OB 11-15 07:12 | PROVIDERS: PCP Family Medicine; Referring Provider Obstetrics & Gynecology; Visit Provider Obstetrics & Gynecology | DX: O11.3 Pre-existing hypertension with pre-eclampsia, third trimester (principal); O10.013 Pre-existing essential hypertension complicating pregnancy, third trimester; O35.8XX0 Maternal care for other (suspected) fetal abnormality and damage, not applicable or unspecified; Z3A.35 35 weeks gestation of pregnancy | CPT/HCPCS: 59025; G0378; G0379 ==

== ENCOUNTER 2021-11-15 10:27 | Inpatient (IN) | payer MEDICARE, MEDICAID, SELFPAY ==
--- NOTE | 2021-11-15 | PATH_ITS ---
[facility] Accession Number: [id number] . 01 Material submitted: . fallopian tube - BILATERAL TUBES . 01 Diagnosis: Bilateral Tubes, Bilateral Salpingectomy: Fallopian tubes x2 with rare, benign paratubal cysts (5 mm), complete cross-sections; negative for atypia or malignancy. MRV 11/20/2021 1336 Local . 01 Electronically signed: . Verna Watts MD, Pathologist NPI- [id number] . 01 Gross description: . Received in a container of formalin, labeled bilateral tubes, are bilateral nonoriented fallopian tubes measuring 9.0 x 0.5 cm and 8.0 x 0.5 cm. The serosal surfaces are congested, smooth, and glistening. Attached to the longer fallopian tube's fimbriated end is a 0.5 cm unremarkable paratubal cyst. The fallopian tubes are sectioned and have patent stellate lumina on cut surfaces. No masses or lesions are identified. Configuration Analyst sections are submitted as follows: . A1: Cross-section longer fallopian tube and its entire fimbriated end with paratubal cyst. A2: Cross-section shorter fallopian tube and its entire fimbriated end. ([id number]) /FRR 11/17/2021 1416 Local . 01 Pathologist provided ICD-10: Z30.2 . 01 CPT . 333695 Specimen Comment: A courtesy copy of this report has been sent to [phone] Performed at: 01 [facility] [address] [place] [address] [address], [place], [place] [id number] MD Magdaleno Kyle MD Phone: [phone]
[2021-11-15 17:19] LABS: Add Manual Diff / Slide Review NO; Basophils Absolute Auto 100 /uL (0-100); Basophils Percent Auto 0.5 % (0-2); Eosinophils Absolute Auto 200 /uL (0-450); Eosinophils Percent Auto 1.5 % (2-4); Hematocrit 37.8 % (36-46); Lymphocytes Absolute Auto 1800 /uL (1100-4500); Lymphocytes Percent Auto 17.5 % (25-40); Mean Corpuscular HGB Conc 34.3 % (30-36); Mean Corpuscular Hemoglobin 30.5 PG (26-34); Mean Corpuscular Volume 88.8 fL (80-100); Monocytes Absolute Auto 600 /uL (0-900); Neutrophils Absolute Auto 7700 /uL (1500-7000); Neutrophils Percent Auto 74.5 % (50-75); Platelet Count 239 X10^3/uL (150-400); Red Blood Cell Count 4.25 X10^6/uL (4.0-5.2); Red Cell Distribution Width 14.1 % (11.6-14.8); White Blood Cell Count 10.4 X10^3/uL (4.5-11.0)
[2021-11-15 17:47] LABS: COVID19 -Nasal RAPID Negative (Negative)
[2021-11-15] MEDS: LACTATED RINGERS 1,000 ML 100 ML IV ×2 (17:50→18:27)
[2021-11-15 18:46] VITALS: BP 147/72
--- NOTE | 2021-11-15 19:31 | P.HPOB_ITS ---
OB HPI Date/Time Date of admission: 11/15/21 Date Patient Seen: 11/15/21 Time Patient Seen: 15:30 History of Present Condition Chief complaint: IP per RN MIRTA Calculator Estimated Delivery Date Method Current WG Current Estimate 12/11/21 LMP (Certain) 36w 2d Other Estimates 12/14/21 Ultrasound #1 35w 6d 12/14/21 Ultrasound #2 35w 6d Estimated Gestational Age (weeks): 36+2 : 2 Para: 1 care: good care, initiated at week # (9), number of visits (10) and pounds weight gain (44) Dating criteria OB: LMP confirmed by 1st trimester US Ultrasounds: normal 1st trimester US and normal mid trimester US Obstetrical complications: gestational hypertension and other (2 vessel cord) Medical complications OB: none Indications Operative indications ( section): breech presentation Other reason(s) for admission: Non-reassuring FHR tracing Preadmission Labs Last OB Lab Results: Blood Type O Negative 11/15/21 16:50 11/15/21 Antibody Screen Positive 11/15/21 16:50 11/15/21 Hematocrit 37.8 % (36-46) 11/15/21 16:50 11/15/21 Hemoglobin 13.0 g/dL (12.0-16.0) 11/15/21 16:50 11/15/21 Hepatitis B Surface Antigen Negative s/c (NEGATIVE) 07/12/21 12:48 07/12/21 Hepatitis C Antibody Negative s/c (NEGATIVE) 07/12/21 12:48 07/12/21 Rubella Antibody 3.7 IU/mL (>15) L 07/12/21 12:48 07/12/21 Varicella-Zoster IgG Antibody 1429 index (Immune >165) 07/12/21 12:48 07/12/21 Group B Streptococcus (PCR) Neg for grp b strep 10/28/21 19:20 10/28/21 Glucose Tolerance Testin hr (86 in the office) -: Chlamydia screen: negative and Gonorrhea screen: negative Genetic Screens: Quad screen: Normal Prior (ies) Past Pregnancies Del. Date GA/Weeks Labor Lgth Wt Sex Route Outcome Anesthesia Place Delv Breastfeed Preg Comp Name 07/08/14 40.2 6 7 lb 2.1 oz Female vaginal live - full t erm epidural IH w Dr Foster / Anastasia Thompson, certified orthotist/pedorthist 2 mos, low supply. induced hyper- Miladis Delivery Date: 07/08/14 Last Updated by: Basia Kuo R.N. Bedrest x 1 month for HTN. Induction for high BP, 5 day process. Tight nuchal. Tear with repair, healed well. Passed out in bathroom first time up. PPD with BF challenges: hard for her emotionally. Mirena IUD @ 6wks PP, made PPD worse. Evaluation Evaluation Baseline heart rate: 135 Variability: Minimal (3-5) monitor accelerations: Present Monitor Decelerations: Absent Status: Category ll [facility] Medical History Abnormal Pap smear of cervix (~2012) Anxiety (~2000) Chicken pox (~1995) Constipation Depression (~2000) Diverticulitis (~2020) Frequent headaches Genital warts Heavy menstrual period (~1997) Hemorrhoid (~2013) Human papilloma virus Hypertension (~2013) Hypertension affecting in second trimester (~2013) Hypothyroid (~2006) Painful menstrual periods depression (~2014) Psoriasis (~2013) PTSD (post-traumatic stress disorder) (~1999) Surgical History Anesthesia History of carpal tunnel repair (~2009) History of colposcopy (~2008) History of surgical removal of ganglion cyst Status post appendectomy (~12/1999) Graham teeth extracted (~2003) Family History Father Age: 65 Hypertension High cholesterol Mental health problem Grandmother Cancer Diabetes mellitus Heart disease Hypertension Mother Age: 59 Breast cancer Heart disease Hypertension High cholesterol Mental health problem Stroke Sister Age: 37 Hypertension Grandfather Alzheimer's dementia Grandmother Family history unknown Grandfather Family history unknown Social History marital status: number of children: 1 household members: spouse, family (Her mother.) and children lives independently: Yes caregiver/support person: No pets and animals: Yes (1 cat, 1 dog, 2 rats:) education level: high school (GED.) occupational status: unemployed current occupational exposures/hazards: No special leland needs: No seatbelt use: always do you feel safe at home: Yes Smoking Status: Former smoker Tobacco: How many years used: 10 quit status: considering quitting second hand exposure: No (Her mom smokes outside.) alcohol intake: former (Pre-: 3 x / week, 3-6 beers.) substance use type: marijuana (Smokes marijuana: daily, a couple puffs. Helps w/ nausea & sleep.) during the past year weight has: remained stable well-balanced diet: about half the time daily servings fruits/ve-4 caffeine: Yes (1-2 cups coffee/day.) Type(s) of exercise: walking and normal ROM and activity (Active with yard work on 6 acres. Thinking about joining a gym to swim.) frequency: 3-4 times per week duration: 15-30 minutes/day Meds Home Medications and Allergies Home Medications Medication Instructions Recorded Confirmed Type levothyroxine 175 mcg capsule 175 mcg PO DAILY 04/12/21 11/15/21 History liothyronine 25 mcg tablet 25 mcg PO DAILY 04/12/21 11/15/21 History prenat.vits,kanchan,shr-obip-jtekf 1 tab PO DAILY 04/12/21 11/15/21 History valacyclovir 500 mg tablet 500 mg PO DAILY #30 tab 09/05/21 11/15/21 Rx (Valtrex) Aspirin Low Dose 81 mg PO DAILY 10/28/21 11/15/21 History labetalol 100 mg tablet 200 mg PO TID 11/15/21 11/15/21 History Allergies Allergy/AdvReac Type Severity Reaction Status Date / Time No Known Drug Allergies Allergy Verified 11/15/21 18:25 OB Exam Narrative Exam Narrative: Generally: Patient is sitting up in bed, no acute distress Lungs: Clear to auscultation bilaterally Cardiovascular: Regular rate and rhythm Fundal height: 39 cm Estimated weight: 6 lb Extremities: 1+ edema, 1+ DTRs, no clonus Objective Labs Result Diagrams: 11/15/21 16:50 Labs: Laboratory Results - last 24 hr 11/15/21 11/15/21 11/15/21 16:50 16:50 16:50 WBC 10.4 RBC 4.25 Hgb 13.0 Hct 37.8 MCV 88.8 MCH 30.5 MCHC 34.3 RDW 14.1 Plt Count 239 Neut % (Auto) 74.5 Lymph % (Auto) 17.5 L [place] % (Auto) 6.0 Eos % (Auto) 1.5 L Baso % (Auto) 0.5 Neut # (Auto) 7700 H Lymph # (Auto) 1800 [place] # (Auto) 600 Eos # (Auto) 200 Baso # (Auto) 100 SARS-CoV-2 (PCR) Negative Blood Type O Negative Antibody Screen Positive Antibody Identification Anti-D Assessment and Plan Assessment and Plan Assessment and Plan narrative: Assessment: 36-year-old 2 para 1 at 36-,2/7 weeks gestation with gestational hypertension and a 2 vessel cord and a nonreassuring heart rate tracing Breech presentation Plan: Primary low-transverse section The risks, benefits, and alternatives to the procedure were explained to the patient. The risks including bleeding, infection, injury to the bowel, bladder, or ureters. She understands these risks and agrees to proceed. A full par Q was held and consent form was signed. Time Spent with Patient Total time spent with greater than 50% in coordination of care (as documented) at patient's floor/unit and/or counseling patient:: 15-24 minutes
--- NOTE | 2021-11-15 19:36 | P.OP.PRE_ITS ---
Pre-operative Note COVID-19 COVID-19 status: Negative Result date/Date tested (Pos, Neg/Pending): 11/15/21 Criteria for continued procedure: Non-surgical alternatives not available or appropriate per current SOC Interval Note History & Physical reviewed/Exam performed by Physician: Yes Changes to H&P: No H&P completed within 30 days and has changed as indicated here:: 11/15/21
[2021-11-15] MEDS: CEFAZOLIN 3 GM IN 0.9 % NACL 3 GM/100 ML PLAST..BAG IV (22:20)
--- NOTE | 2021-11-15 22:40 | SUR.OPER ---
Supine on Padded OR bed, head on pillow, safety belt at thigh, arms secured on padded arm boards at <90 degrees abduction. Bump under right buttock. Legs uncrossed with pillow under knees, gel pad to heels, tape over blanket to lower legs.
--- NOTE | 2021-11-15 23:30 | P.OP_ITS ---
Operative Date/Time/Diagnoses Date of procedure: 11/15/21 Time of procedure: 23:30 Pre-op diagnosis: 36-,2/7 weeks gestation Two vessel umbilical cord Gestational hypertension Nonreassuring heart rate tracing Post-op diagnosis: same Procedure & Clinicians Procedure: Primary low-transverse section Bilateral salpingectomy Same procedure as scheduled: Yes Indications: 36-,2/7 weeks gestation Two vessel umbilical cord Gestational hypertension Nonreassuring heart rate tracing Desires sterilization Surgeon: Grisel Foster Click Yes if Unassisted: No Audiology Technician: Stacey Parker Reason for Audiology Technician: The assistant store manager sales was necessary in entering the abdomen and uterus with retraction. Upon closure of the uterus and abdomen she retracted and clip suture. She closed the contralateral fascia. She is cyst did with delivery of the baby. Anesthesia Type: Spinal (With Duramorph) Operative Notes Findings: Live female infant in the complete breech presentation Normal uterus, tubes, and ovaries Closure Type: primary Specimen(s): cord blood, cord pH, placenta and tubes/segments of tubes Intraoperative meds administered: Acetaminophen, Duramorph, Ketorolac and Pitocin Applied: Catheter (To continuous drainage) Estimated Blood Loss (mL): 400 Blood products transfused: none Procedure in detail: The patient was taken to the operating room where she was placed in the seated position. Spinal anesthesia with Duramorph was administered. She was then placed in the dorsal supine position with a leftward tilt. She was prepped and draped in the usual sterile fashion. A timeout was performed. After spinal analgesia was found to be adequate, a Pfannenstiel skin incision was made 2 fingerbreadths above the pubic symphysis and carried through to the underlying layer of fascia. The fascia was nicked in the midline, and the incision extended bilaterally with the [place] scissors. The superior aspect of the fascial incision was grasped with a Yana clamps, elevated, and the underlying rectus muscles dissected off sharply and bluntly. Attention was then turned to the inferior aspect of this incision which in a similar fashion was grasped with a Yana clamps, elevated, and the underlying rectus muscles dissected off sharply and bluntly. The rectus muscles were in the midline. The peritoneum was identified, grasped between 2 hemostats, and entered sharply with the Metzenbaum scissors. This incision was extended superiorly and inferiorly with good visualization of the bladder. The bladder blade was inserted. The vesicouterine peritoneum was identified, grasped with the pickup, and entered sharply with the Metzenbaum scissors. This incision was extended bilaterally, and the bladder flap was created digitally. The bladder blade was reinserted. The lower uterine segment was incised in a transverse fashion with the scalpel. Upon entering the amniotic sac there was a small amount of light meconium- stained amniotic fluid. The was delivered without difficulty by total breech extraction. The nose and mouth were suctioned with bulb suction. The remainder of the body delivered without difficulty. The cord was double clamped and cut. A piece of cord was obtained for cord pH. Cord bloods were obtained. The infant was handed off to waiting RN and RT. The placenta was delivered manually. The uterus was cleared of all clots and debris. The uterine incision was repaired with #1 chromic in a running interlocking fashion, and a second layer the same suture was used for an imbricating layer. Hemostasis was achieved. The tubes and ovaries were examined and were found to be normal. The gutters were cleared of all clots and debris. The bladder flap was reappro ximated using 2-0 Vicryl in a running fashion. The parietal peritoneum was closed using 2-0 Vicryl in a running fashion. The fascia was reapproximated using 0 Vicryl in a running fashion. The subcutaneous layer was copiously irrigated with warm normal saline. 5 simple interrupted sutures of 3-0 Vicryl were placed to reapproximate the subcutaneous layer. The skin was closed with 4-0 Monocryl in a subcuticular fashion. Steri-Strips were placed. An Aquacel dressing was placed. The uterus was expressed of a small amount of old blood. Sponge, lap, and instrument counts were correct x-2. The patient tolerated the procedure well, and was taken to PACU in stable condition. Complications: none [place] Baby 1: Infant Gender: Female Presentation: breech Details: complete Placental Delivery Description: Manual Removal Cord Vessel Description: 2 Vessels score (1 min): 5 score (5 min): 7 weight: 6 lb 3.5 oz Post-operative Condition: stable Disposition: PACU Aftercare: routine postop
[2021-11-15 23:31] VITALS: BP 161/84; PULSE 58; RESP 14; TEMP 37.2; O2SAT 97
--- NOTE | 2021-11-15 23:38 | SUR.OPER ---
Baby girl born at 2237. Placenta, cord blood, and piece of umbilical cord given to OB.
[2021-11-15 23:42] VITALS: BP 128/75; PULSE 54; RESP 13; O2SAT 98
[2021-11-15 23:47] VITALS: BP 147/85; PULSE 58; RESP 12; O2SAT 97
[2021-11-15 23:52] VITALS: BP 147/79; PULSE 58; RESP 11; O2SAT 98
[2021-11-15] MEDS: ACETAMINOPHEN IV 1,000 MG/100 ML VIAL 400 MG IV (23:56)
[2021-11-16] MEDS: OXYCODONE IR 5 MG TABLET 10 MG PO ×3 (06:17→14:00)
[2021-11-16] MEDS: KETOROLAC 30 MG/ML VIAL IV ×2 (15:00→21:07)
--- NOTE | 2021-11-16 16:27 | P.PNOB_ITS ---
Subjective - OB Subjective Patient comments: no complaints, incisional pain and tolerating diet [place] baby status: NICU (Baby transferred to [facility]) feeding status: pumping and bottle feeding Date Patient Seen: 11/16/21 Time Patient Seen: 12:40 Interval history: Patient is a 36-year-old 2 para June 23, 1999 who had an emergent section last evening due to breech presentation, gestational hypertension, and a nonreassuring heart rate tracing. The baby was transferred to [facility] for NICU care. Price catheter still in place. Pain management has been an issue. We are changing to scheduled medications. No nausea or vomiting. Exam Narrative Exam Narrative: Generally: Patient is sitting up in bed, no acute distress Cardiovascular: Regular rate and rhythm Lungs: Clear to auscultation bilaterally Abdomen: Appropriately tender Fundus: Firm at U -2 Incision: Clean dry and intact with Aquacel dressing Extremities: 1+ edema, negative Homans, 1+ DTRs Assessment & Plan Plan day: 1 plan OB: routine postop care Comments: Scheduled pain meds support Will discharge in the morning for patient to go to [facility] Time Spent With Patient Time: Total time spent is greater than 50% in coordination of care (as documented) at patient's floor/unit and/or counseling patient: Time with patient: 15-24 minutes
[2021-11-16] MEDS: OXYCODONE IR 10 MG TABLET PO ×2 (18:08→21:51)
[2021-11-16] MEDS: SIMETHICONE 80 MG TABLET PO (18:08)
[2021-11-16 19:38] LABS: Hematocrit 32.7 % (36-46); Hemoglobin 11.2 g/dL (12.0-16.0)
[2021-11-16] MEDS: DOCUSATE 100 MG CAPSULE PO (21:09)
[2021-11-17] MEDS: OXYCODONE IR 10 MG TABLET PO ×3 (01:55→10:52)
[2021-11-17] MEDS: LABETALOL 100 MG TABLET PO ×2 (02:19→09:07)
[2021-11-17] MEDS: IBUPROFEN 600 MG TABLET PO ×3 (02:59→09:07)
[2021-11-17 07:00] VITALS: BP 147/79; PULSE 58; RESP 11; TEMP 37.2
[2021-11-17] MEDS: PRENATAL VIT,CALC/IRON/FOLIC 1 TABLET 1 TAB PO (09:07)
[2021-11-17] MEDS: DOCUSATE 100 MG CAPSULE PO (09:07)
[2021-11-17] MEDS: LEVOTHYROXINE 75 MCG TABLET PO (09:08)
[2021-11-17] MEDS: LIOTHYRONINE 5 MCG TABLET 25 MCG PO (09:08)
[2021-11-17] MEDS: LEVOTHYROXINE 100 MCG TABLET PO (09:08)
[2021-11-17 10:55] VITALS: BP 112/60; PULSE 80
== END 2021-11-17 11:19 | disposition home or self-care (01) | DRG 785 ==
LOC: LABOR 13:55 → AC 11-22 11:19 → SSU 11-22 11:19
PROVIDERS: Obstetrics & Gynecology; Admitting Provider Obstetrics & Gynecology; PCP Family Medicine; Referring Provider Obstetrics & Gynecology; Visit Provider Obstetrics & Gynecology
PROC: (CPT 59514; principal; 2021-11-15 22:30)
DX: O13.4 Gestational [pregnancy-induced] hypertension without significant proteinuria, complicating childbirth (principal); O76 Abnormality in fetal heart rate and rhythm complicating labor and delivery; Q27.0 Congenital absence and hypoplasia of umbilical artery; Z30.2 Encounter for sterilization; Z3A.36 36 weeks gestation of pregnancy; Z37.0 Single live birth; O32.1XX0 Maternal care for breech presentation, not applicable or unspecified; Z20.822 Contact with and (suspected) exposure to COVID-19; N83.8 Other noninflammatory disorders of ovary, fallopian tube and broad ligament
CPT/HCPCS: 59515; 58611; 36415; 59050; 59510; 59514; 76815; 85014; 85018; 85025; 86850; 86870; 86900; 86901; 87635; C9803; G0378; G0379; J0131; J0690; J1885; J2274; J2590; J3010

== ENCOUNTER → 2022-04-29 15:42 | Outpatient (CLI) | payer MEDICARE, SELFPAY ==
[2022-04-29 16:34] LABS: Strep Grp A by PCR Rapid Negative (Negative)
== END ==
PROVIDERS: PCP Family Medicine; Visit Provider Family Medicine
DX: J02.9 Acute pharyngitis, unspecified (principal)
CPT/HCPCS: 87070; 87651

== ENCOUNTER → 2022-07-02 10:47 | Outpatient (CLI) | payer MEDICARE, SELFPAY ==
[2022-07-02 14:53] LABS: Free T4, Direct Thyroxine 0.31 ng/dL (0.78-2.19)
== END ==
PROVIDERS: PCP Family Medicine; Referring Provider Family Medicine; Visit Provider Family Medicine
DX: E03.9 Hypothyroidism, unspecified (principal)
CPT/HCPCS: 36415; 84439; 84443

== ENCOUNTER 2022-11-25 10:23 | Emergency (ER) | payer MEDICARE, MEDICAID, SELFPAY ==
[2022-11-25 10:27] VITALS: BP 170/104; PULSE 75; RESP 16; TEMP 36.3; O2SAT 97; BMI 47.2
--- NOTE | 2022-11-25 10:33 | DI.US.S_ITS ---
PROCEDURE: US PERIPH VENOUS LOW EXTREM RT INDICATIONS: REDNESS AND SWELLING TECHNIQUE: Real-time imaging, as well as color and pulse Doppler interrogation, were performed of the lower extremity deep veins from the inguinal ligament to the popliteal fossa. COMPARISON: None. FINDINGS: The common femoral, femoral and popliteal veins are normally compressible, and free of intraluminal thrombus. Color and pulse Doppler demonstrate normal phasic intraluminal flow. There is normal augmentation response to distal compression maneuver. IMPRESSION: Negative right lower extremity duplex venous ultrasound for DVT. Dictated by: Shan Cameron M.D. on 11/25/2022 at 11:23 Approved by: hSan Cameron M.D. on 11/25/2022 at 11:24
[2022-11-25 11:03] LABS: Add Manual Diff / Slide Review NO; Basophils Absolute Auto 100 /uL (0-100); Basophils Percent Auto 0.9 % (0-2); Eosinophils Absolute Auto 400 /uL (0-450); Eosinophils Percent Auto 5.4 % (2-4); Hematocrit 44.1 % (36-46); Lymphocytes Absolute Auto 2000 /uL (1100-4500); Lymphocytes Percent Auto 28.5 % (25-40); Mean Corpuscular HGB Conc 33.9 % (30-36); Mean Corpuscular Hemoglobin 31.6 PG (26-34); Mean Corpuscular Volume 93.4 fL (80-100); Monocytes Absolute Auto 400 /uL (0-900); Monocytes Percent Auto 5.1 % (3-14); Neutrophils Absolute Auto 4200 /uL (1500-7000); Neutrophils Percent Auto 60.1 % (50-75); Platelet Count 272 X10^3/uL (150-400); Red Blood Cell Count 4.73 X10^6/uL (4.0-5.2); Red Cell Distribution Width 14.9 % (11.6-14.8)
[2022-11-25 11:16] LABS: Alanine Aminotransferase 25 IU/L (<35); Albumin 4.4 g/dL (3.5-5.0); Albumin Globulin Ratio 1.3 (1.0-2.8); Alkaline Phosphatase 79 U/L (38-126); Aspartate Aminotransferase 28 IU/L (14-36); BUN Creatinine Ratio 13.2 (6-22); Bilirubin Total 0.5 mg/dL (0.2-1.3); Blood Urea Nitrogen 10 mg/dL (7-17); Calcium 9.2 mg/dL (8.4-10.2); Carbon Dioxide 29 mmol/L (22-32); Chloride 102 mmol/L (98-107); Estimated Glomerular Filt Rate > 60 mL/min (>60); Globulin 3.3 g/dL (1.7-4.1); Glucose 138 mg/dL (70-100); HEMOLYSIS < 15 (0-50); Potassium 4.1 mmol/L (3.4-5.1); Sodium 138 mmol/L (137-145); Total Protein 7.7 g/dL (6.3-8.2)
--- NOTE | 2022-11-25 11:22 | ED.EXTPRO ---
HPI - Extremity Problem <Irish Bassett PA-C - Last Filed: 11/25/22 11:42> General Chief complaint: Extremity Problem,Nontraumatic Stated complaint: severe swelling RT foot & leg getting worse Time Seen by Provider: 11/25/22 10:49 History of Present Illness HPI Narrative: 37-year-old female with past medical history preeclampsia, hypertension, nonalcoholic fatty liver disease, hypothyroidism presents to the ED with worsening right leg swelling and pain. Patient states that she delivered her child in October of 2021, following which she has had right leg swelling. Patient also had preeclampsia during her , continues to have hypertension post . Patient is on labetalol and nifedipine for blood pressure control. Patient states that she is having trouble being compliant with her nighttime dose of medications. Patient was previously on atenolol and hydrochlorothiazide. Patient complains of right foot and leg pain. Patient was screened for DVTs in February 2022, which was negative. Related Data Home Medications Medication Instructions Recorded Confirmed hydrochlorothiazide 25 mg tablet 50 mg PO DAILY 04/08/22 05/03/22 Previous Rx's Medication Instructions Recorded citalopram 10 mg tablet (Celexa) 20 mg PO DAILY #60 tabs 01/04/22 labetalol 200 mg tablet 200 mg PO BID #60 tabs 01/04/22 nifedipine 30 mg tablet,extended 30 mg PO DAILY #30 tabs 01/04/22 release prenat.vits,kanchan,obv-duto-gjzom 1 tab PO DAILY #30 tabs 01/04/22 clotrimazole 1 % topical cream 1 applic topical BID #30 grams 04/29/22 triamcinolone acetonide 0.1 % 1 applic topical BID #30 grams 04/29/22 topical cream fluconazole 150 mg tablet 150 mg PO Q3D 2 doses #2 tabs 05/03/22 (Diflucan) levothyroxine 175 mcg capsule 175 mcg PO DAILY #45 caps 07/03/22 liothyronine 25 mcg tablet 25 mcg PO DAILY #45 tabs 07/03/22 furosemide 40 mg tablet (Lasix) 40 mg PO DAILY #30 tabs 11/25/22 Allergies Allergy/AdvReac Type Severity Reaction Status Date / Time No Known Drug Allergies Allergy Verified 05/03/22 15:39 Review of Systems <Irish Bassett PA-C - Last Filed: 11/25/22 11:42> Review of Systems ROS Unobtainable: All systems reviewed & are unremarkable except as noted in HPI and below Constitutional Constitutional: Denies chills, Denies fatigue, Denies fever(s), Denies frequent falls, Denies lethargy and Denies weakness Eyes Eyes: Denies change in vision, Denies eye discharge, Denies irritation and Denies loss of vision ENT Ears, Nose, Mouth, and Throat: Denies change in voice, Denies dizziness, Denies neck pain, Denies sore throat and Denies throat swelling Cardiovascular Cardiovascular: Denies chest pain, Denies irregular heart rhythm, Denies lightheadedness, Denies palpitations, Denies dyspnea, Denies dyspnea on exertion and Denies orthopnea Respiratory Respiratory: Denies cough, Denies dyspnea, Denies dyspnea on exertion and Denies wheezing Gastrointestinal Gastrointestinal: Denies abdominal pain, Denies change in bowel habits, Denies diarrhea, Denies nausea and Denies vomiting Genitourinary Genitourinary: Denies hematuria, Denies flank pain, Denies urinary incontinence and Denies urinary urgency Musculoskeletal Musculoskeletal: Denies back pain, Denies muscle weakness, Denies neck pain, Denies numbness and Denies tingling Comments: Right leg, right foot swelling and pain Integumentary/Breasts Skin/Breast: Denies pruritus, Denies erythema, Denies rash and Denies wounds Neurologic Neurologic: Denies behavioral changes, Denies confusion, Denies dizziness, Denies frequent falls, Denies loss of vision, Denies numbness, Denies tingling and Denies weakness Psychiatric Psychiatric: Denies anxiety, Denies behavioral changes, Denies confusion, Denies depression, Denies homicidal ideation and Denies suicidal ideation Endocrine Endocrine: Denies fatigue, Denies flushing and Denies palpitations Hematologic/Lymphatic Hematologic/Lymphatic: Denies easy bruising Allergic/Immunologic Allergic/Immunologic: Denies urticaria, Denies throat swelling and Denies wheezing Patient History <Irish Bassett PA-C - Last Filed: 11/25/22 11:42> Medical History Abnormal Pap smear of cervix (~2012) Ankle pain (~1998) Anxiety (~2000) Carpal tunnel syndrome (~2010) Chicken pox (~1995) Chronic back pain (~2002) Constipation Depression (~2000) Diverticulitis (~2020) Fractures Frequent headaches Genital warts Headache Heavy menstrual period (~1997) Hemorrhoid (~2013) Human papilloma virus Hypertension (~2013) Hypertension affecting Hypertension affecting in second trimester (~2013) Hypothyroid (~2006) Hypothyroid in , antepartum Painful menstrual periods depression (~2014) Psoriasis (~2013) PTSD (post-traumatic stress disorder) (~1999) Two vessel cord Surgical History Anesthesia History of carpal tunnel repair (~2009) History of section (~2021) History of colposcopy (~2008) History of surgical removal of ganglion cyst Status post appendectomy (~12/1999) [place] teeth extracted (~2003) Family History Father Age: 66 Hypertension High cholesterol Mental health problem Grandmother Cancer Diabetes mellitus Heart disease Hypertension Mother Age: 60 Breast cancer Heart disease Hypertension High cholesterol Mental health problem Stroke Sister Age: 38 Hypertension Grandfather Alzheimer's dementia Grandmother Family history unknown Grandfather Family history unknown Grandmother Colon cancer Diabetes mellitus Heart disease Hypertension Mental health problem Social History marital status: number of children: 1 household members: spouse, family (Her mother.) and children lives independently: Yes caregiver/support person: No pets and animals: Yes (1 cat, 1 dog, 2 rats:) education level: high school (GED.) occupational status: unemployed current occupational exposures/hazards: No special leland needs: No seatbelt use: always do you feel safe at home: Yes Smoking Status: Current every day smoker Tobacco: How many years used: 17 quit status: considering quitting second hand exposure: No (Her mom smokes outside.) alcohol intake: former (1-3 drinks per week ) substance use type: marijuana (Smokes marijuana: daily, a couple puffs. Helps w/ nausea & sleep.) during the past year weight has: remained stable well-balanced diet: about half the time daily servings fruits/ve-4 caffeine: Yes (1-2 cups coffee/day.) Type(s) of exercise: walking and normal ROM and activity (Active with yard work [place]. Thinking about joining a gym to swim.) frequency: 3-4 times per week duration: 15-30 minutes/day Smoking Status: Current every day smoker Exam <Irish Bassett PA-C - Last Filed: 11/25/22 11:42> Narrative Exam Narrative: Const General:?cooperative, healthy appearing and comfortable HENMT Head:?normal to inspection Ears:?hearing grossly normal bilaterally Nose:?external nose normal Face and sinus:?normal facial exam and sinuses nontender Mouth:?oral mucosae normal Throat:?posterior oropharynx normal Eyes General:?appearance normal, both eyes and all related structures Neck Neck:?normal visual inspection and no lymphadenopathy noted Resp Effort & Inspection:?normal respiratory effort Auscultation:?clear to auscultation bilaterally Cardio Rate:?regular rate Rhythm:?regular rhythm Musculoskeletal Right greater than left leg swelling, pitting edema. Mildly tender to palpation. No deformities or bruising or trauma noted. Strength and sensation is intact. There is full range of motion. Patient is neurovascularly intact. Neuro General:?patient alert, patient awake and patient oriented x3 Initial Vital Signs Initial Vital Signs: Vital Signs Temperature 97.4 F L 11/25/22 10:27 Pulse Rate 75 11/25/22 10:27 Respiratory Rate 16 11/25/22 10:27 Blood Pressure 170/104 H 11/25/22 10:27 Pulse Oximetry 97 11/25/22 10:27 Oxygen Delivery Method Room Air 11/25/22 10:27 <Fernando Mireles MD - Last Filed: 11/27/22 12:52> Initial Vital Signs Initial Vital Signs: Vital Signs Temperature 97.4 F L 11/25/22 10:27 Pulse Rate 75 11/25/22 10:27 Respiratory Rate 16 11/25/22 10:27 Blood Pressure 170/104 H 11/25/22 10:27 Pulse Oximetry 97 11/25/22 10:27 Oxygen Delivery Method Room Air 11/25/22 10:27 Course <Irish Bassett PA-C - Last Filed: 11/25/22 11:42> Orders Ordered: ED Orders 11/25/22 10:33 US periph venous low extrem rt Stat 11/25/22 10:45 CMP [Comprehensive Metabolic Panel] Stat Complete Blood Count AUTO DIFF Stat Vital Signs Vital signs: Vital Signs - 8 hr 11/25/22 10:27 11/25/22 11:36 Temperature 97.4 F L Pulse Rate 75 72 Respiratory Rate 16 16 Blood Pressure 170/104 H 131/80 Pulse Oximetry 97 98 Oxygen Delivery Method Room Air Room Air <Fernando Mireles MD - Last Filed: 11/27/22 12:52> Orders Ordered: ED Orders 11/25/22 10:33 US periph venous low extrem rt Stat 11/25/22 10:45 CMP [Comprehensive Metabolic Panel] Stat Complete Blood Count AUTO DIFF Stat Vital Signs Vital signs: Vital Signs - 8 hr 11/25/22 10:27 11/25/22 11:36 Temperature 97.4 F L Pulse Rate 75 72 Respiratory Rate 16 16 Blood Pressure 170/104 H 131/80 Pulse Oximetry 97 98 Oxygen Delivery Method Room Air Room Air MDM - Extremity (Nontraumatic) <Irish Bassett PA-C - Last Filed: 11/25/22 11:42> Lab Data 11/25/22 10:45 11/25/22 10:45 Labs: Lab Results 11/25/22 11/25/22 Range/Units 10:45 10:45 WBC 7.0 (4.5-11.0) X10^3/uL RBC 4.73 (4.0-5.2) X10^6/uL Hgb 15.0 (12.0-16.0) g/dL Hct 44.1 (36-46) % MCV 93.4 (80-100) fL MCH 31.6 (26-34) PG MCHC 33.9 (30-36) % RDW 14.9 H (11.6-14.8) % Plt Count 272 (150-400) X10^3/uL Neut % (Auto) 60.1 (50-75) % Lymph % (Auto) 28.5 (25-40) % [place] % (Auto) 5.1 (3-14) % Eos % (Auto) 5.4 H (2-4) % Baso % (Auto) 0.9 (0-2) % Neut # (Auto) 4200 (0908-9290) /uL Lymph # (Auto) 2000 (3665-2518) /uL [place] # (Auto) 400 (0-900) /uL Eos # (Auto) 400 (0-450) /uL Baso # (Auto) 100 (0-100) /uL Sodium 138 (137-145) mmol/L Potassium 4.1 (3.4-5.1) mmol/L Chloride 102 (98-107) mmol/L Carbon Dioxide 29 (22-32) mmol/L BUN 10 (7-17) mg/dL Creatinine 0.76 (0.52-1.04) mg/dL Estimated GFR > 60 (>60) mL/min BUN/Creatinine Ratio 13.2 (6-22) Glucose 138 H (70-100) mg/dL Calcium 9.2 (8.4-10.2) mg/dL Total Bilirubin 0.5 (0.2-1.3) mg/dL AST 28 (14-36) IU/L ALT 25 (<35) IU/L Alkaline Phosphatase 79 (38-126) U/L Total Protein 7.7 (6.3-8.2) g/dL Albumin 4.4 (3.5-5.0) g/dL Globulin 3.3 (1.7-4.1) g/dL Albumin/Globulin Ratio 1.3 (1.0-2.8) MDM Narrative Medical decision making narrative: 37-year-old female with past medical history preeclampsia, hypertension, nonalcoholic fatty liver disease, hypothyroidism presents to the ED with worsening right leg swelling and pain. Concern for DVT versus venous insufficiency versus other. Will obtain labs, ultrasound right lower extremity. Will reassess. Labs within normal limits. Ultrasound with no acute findings. Patient's symptoms likely due to venous insufficiency. Will start patient on diuretics, recommend follow-up with PCP, vascular for further evaluation. Patient's blood pressure was elevated on arrival to 170/104, however on recheck settled at 131/80. Recommend compliance with blood pressure medications and blood pressure diary, follow-up with PCP. ED return precautions were discussed with patient. Patient verbalized understanding. Medical records reviewed: Yes <Fernando Mireles MD - Last Filed: 11/27/22 12:52> Lab Data Labs: Lab Results 11/25/22 11/25/22 Range/Units 10:45 10:45 WBC 7.0 (4.5-11.0) X10^3/uL RBC 4.73 (4.0-5.2) X10^6/uL Hgb 15.0 (12.0-16.0) g/dL Hct 44.1 (36-46) % MCV 93.4 (80-100) fL MCH 31.6 (26-34) PG MCHC 33.9 (30-36) % RDW 14.9 H (11.6-14.8) % Plt Count 272 (150-400) X10^3/uL Neut % (Auto) 60.1 (50-75) % Lymph % (Auto) 28.5 (25-40) % [place] % (Auto) 5.1 (3-14) % Eos % (Auto) 5.4 H (2-4) % Baso % (Auto) 0.9 (0-2) % Neut # (Auto) 4200 (1441-5160) /uL Lymph # (Auto) 2000 (1769-6746) /uL [place] # (Auto) 400 (0-900) /uL Eos # (Auto) 400 (0-450) /uL Baso # (Auto) 100 (0-100) /uL Sodium 138 (137-145) mmol/L Potassium 4.1 (3.4-5.1) mmol/L Chloride 102 (98-107) mmol/L Carbon Dioxide 29 (22-32) mmol/L BUN 10 (7-17) mg/dL Creatinine 0.76 (0.52-1.04) mg/dL Estimated GFR > 60 (>60) mL/min BUN/Creatinine Ratio 13.2 (6-22) Glucose 138 H (70-100) mg/dL Calcium 9.2 (8.4-10.2) mg/dL Total Bilirubin 0.5 (0.2-1.3) mg/dL AST 28 (14-36) IU/L ALT 25 (<35) IU/L Alkaline Phosphatase 79 (38-126) U/L Total Protein 7.7 (6.3-8.2) g/dL Albumin 4.4 (3.5-5.0) g/dL Globulin 3.3 (1.7-4.1) g/dL Albumin/Globulin Ratio 1.3 (1.0-2.8) Discharge Plan Departure Patient Disposition: Home Clinical Impression: Leg swelling Instructions: DI for Leg Pain Activity Restrictions/Additional Instructions: You were evaluated in the ED today for right leg pain and swelling. Your labs and ultrasound were normal. Your leg swelling is likely due to venous insufficiency . You are being started on Lasix, which is a diuretic that should help get some fluid off and gave you some relief. Please continue to take your blood pressure medications as prescribed. Please keep a blood pressure diary for the next 2 weeks while you take your medications, follow-up with your primary care doctor for further evaluation of the blood pressure. Please also follow-up with your PCP for the right leg swelling, possible vascular consult. Return to the ED if you experience chest pain, shortness of breath. Prescriptions: New furosemide [Lasix] 40 mg tablet 40 mg PO DAILY Qty: 30 0RF No Action levothyroxine 175 mcg capsule 175 mcg PO DAILY Qty: 45 11RF Rx Instructions: Take one tab daily and one additional dose every other day. liothyronine 25 mcg tablet 25 mcg PO DAILY Qty: 45 11RF Rx Instructions: Take one tab daily and one additional dose every other day. hydrochlorothiazide 25 mg tablet 50 mg PO DAILY fluconazole [Diflucan] 150 mg tablet 150 mg PO Q3D Qty: 2 0RF Rx Instructions: take one tab by mouth, if symptoms still present 3 days later take 2nd dose citalopram [Celexa] 10 mg tablet 20 mg PO DAILY Qty: 60 11RF labetalol 200 mg tablet 200 mg PO BID Qty: 60 11RF nifedipine 30 mg tablet extended release 30 mg PO DAILY Qty: 30 11RF prenat.vits,kanchan,poe-anta-opufm Tablet 1 tab PO DAILY Qty: 30 11RF clotrimazole 1 % cream 1 applic topical BID Qty: 30 3RF Rx Instructions: to affected areas triamcinolone acetonide 0.1 % cream 1 applic topical BID Qty: 30 5RF Referrals: Rosemarie Burgos DO [Primary Care Provider] - Stand Alone Forms: Patient Portal/API <Fernando Mireles MD - Last Filed: 11/27/22 12:52> Cosign ED Attending Denilsonature Attestation: I was immediately available in the department for consultation. ?This documentation has been reviewed and I agree with assessment and plan. Supervised by Fernando Mireles MD
[2022-11-25 11:36] VITALS: BP 131/80; PULSE 72; RESP 16; O2SAT 98
== END 2022-11-25 11:43 | disposition home or self-care (01) ==
PROVIDERS: Emergency Provider Student in an Organized Health Care Education/Training Program; PCP Family Medicine
DX: M79.89 Other specified soft tissue disorders (principal)
CPT/HCPCS: 36415; 80053; 85025; 93971; 99284

== ENCOUNTER → 2023-01-05 11:51 | Outpatient (CLI) | payer MEDICARE, MEDICAID, SELFPAY ==
--- NOTE | 2023-01-05 11:53 | DI.CT.S_ITS ---
PROCEDURE: CT ABDOMEN ADRENAL PROTOCOL INDICATIONS: adrenal nodule TECHNIQUE: Noncontrast 3 mm thick sections acquired from the diaphragms to the iliac crests. After the administration of intravenous contrast, 3 mm thick venous-phase and 15-minute delayed images acquired from the diaphragms to the iliac crests. For radiation dose reduction, the following was used: automated exposure control, adjustment of mA and/or kV according to patient size. COMPARISON: None. FINDINGS: Image quality: Excellent. Lung bases: Lung bases are clear. Heart size is normal. Adrenal glands: Normal appearance of the right adrenal gland. There is a 1.2 x 1.7 cm low-attenuation adrenal nodule in the left adrenal gland (image 37/series 2). This measures approximately -5.6 Hounsfield units on noncontrast images. This lesion measures approximately 0.65 Hounsfield units on delayed images and approximately 15.7 Hounsfield units on the venous phase. The relative washout is approximately 70%. Solid organs: Liver is normal in size and enhancement. Gallbladder is unremarkable . Biliary system is non dilated. Pancreas enhances normally. Spleen is normal in size and enhancement. Kidneys are normal in size and enhancement. No hydronephrosis or nephrolithiasis. Peritoneum and bowel: Unenhanced bowel loops are normal in caliber and wall thickness. No free fluid or air. Scattered colonic diverticula without acute inflammation. Nodes and vessels: No retroperitoneal or mesenteric adenopathy by size criteria. Aorta and inferior vena cava are normal in size. Miscellaneous: There is a fat-containing umbilical hernia without acute inflammation. Bones: No suspicious bony lesions. No acute vertebral body compression fractures. IMPRESSION: 1. There is a 1.7 cm left adrenal adenoma. 2. Colonic diverticulosis without acute diverticulitis. 3. Small fat containing umbilical hernia without acute inflammation. Dictated by: Shan Tolentino M.D. on 01/05/2023 at 11:57 Approved by: Shan Tolentino M.D. on 01/05/2023 at 12:14
== END ==
PROVIDERS: PCP Family Medicine; Referring Provider Family Medicine; Visit Provider Family Medicine
DX: D35.02 Benign neoplasm of left adrenal gland (principal); K76.0 Fatty (change of) liver, not elsewhere classified; K57.90 Diverticulosis of intestine, part unspecified, without perforation or abscess without bleeding; K42.9 Umbilical hernia without obstruction or gangrene; E03.9 Hypothyroidism, unspecified; M79.89 Other specified soft tissue disorders; I10 Essential (primary) hypertension
CPT/HCPCS: 74170; Q9967

== ENCOUNTER → 2023-01-30 11:18 | Outpatient (CLI) | payer MEDICARE, MEDICAID, SELFPAY ==
[2023-01-30 13:43] LABS: Alanine Aminotransferase 28 IU/L (<35); Albumin 3.9 g/dL (3.5-5.0); Albumin Globulin Ratio 1.3 (1.0-2.8); Alkaline Phosphatase 91 U/L (38-126); Aspartate Aminotransferase 33 IU/L (14-36); BUN Creatinine Ratio 12.3 (6-22); Bilirubin Total 0.4 mg/dL (0.2-1.3); Blood Urea Nitrogen 9 mg/dL (7-17); Calcium 8.8 mg/dL (8.4-10.2); Carbon Dioxide 27 mmol/L (22-32); Chloride 105 mmol/L (98-107); Estimated Glomerular Filt Rate > 60 mL/min (>60); Globulin 2.9 g/dL (1.7-4.1); Glucose 85 mg/dL (70-100); HEMOLYSIS < 15 (0-50); Potassium 4.2 mmol/L (3.4-5.1); Sodium 137 mmol/L (137-145); Total Protein 6.8 g/dL (6.3-8.2)
[2023-01-30 13:55] LABS: Free T3, Triiodothyronine Free 1.83 pg/mL (2.77-5.27); Free T4, Direct Thyroxine 0.12 ng/dL (0.78-2.19)
[2023-02-04 22:53] LABS: Aldosterone/Renin Activity Rat 7.2 (0.0-30.0); Plama Renin, LC/MS/MS 0.677 ng/mL/hr (0.167-5.380)
== END ==
PROVIDERS: PCP Family Medicine; Referring Provider Family Medicine; Visit Provider Family Medicine
DX: E03.9 Hypothyroidism, unspecified (principal); E27.8 Other specified disorders of adrenal gland; I10 Essential (primary) hypertension; K76.0 Fatty (change of) liver, not elsewhere classified; M79.89 Other specified soft tissue disorders
CPT/HCPCS: 36415; 80053; 82088; 84244; 84439; 84443; 84481

== ENCOUNTER → 2024-06-28 12:14 | Outpatient (CLI) | payer MEDICARE, MEDICAID, SELFPAY ==
--- NOTE | 2024-06-28 12:17 | DI.RAD.S_ITS ---
PROCEDURE: XR FOOT LT 2V INDICATIONS: FOOT PAIN TECHNIQUE: To views of the foot were acquired. COMPARISON: None. FINDINGS: Bones: No fractures or dislocations. No suspicious bony lesions. Plantar and dorsal calcaneal enthesophytes. Very early, mild hallux valgus. Soft tissues: No tibiotalar joint effusion. Achilles tendon appears normal. IMPRESSION: Very mild hallux valgus. Plantar and dorsal calcaneal enthesophytes. Dictated by: Denys Kaur M.D. on 06/28/2024 at 16:14 Approved by: Denys Kaur M.D. on 06/28/2024 at 16:14
== END ==
PROVIDERS: PCP Family Medicine; Referring Provider Family Medicine; Visit Provider Family Medicine
DX: M79.672 Pain in left foot (principal); M77.32 Calcaneal spur, left foot
CPT/HCPCS: 73620

== ENCOUNTER → 2024-09-13 13:59 | Outpatient (CLI) | payer MEDICARE, SELFPAY ==
--- NOTE | 2024-09-13 14:04 | DI.RAD.S_ITS ---
PROCEDURE: XR KNEE STANDING BI INDICATIONS: R KNEE PAIN TECHNIQUE: Single AP view of the bilateral knee(s) COMPARISON: None. FINDINGS: Bones: No acute fractures or dislocations. Calcific density medially adjacent to the left medial femoral condyle is suggestive of remote medial collateral ligament trauma. No suspicious bony lesions. The joint spaces are preserved. Soft tissues: No knee joint effusions. No suspicious soft tissue calcification. IMPRESSION: No evidence of acute osseous abnormality. Dictated by: Kirt Mclean M.D. on 09/14/2024 at 3:50 Approved by: Kirt Mclean M.D. on 09/14/2024 at 3:51
--- NOTE | 2024-09-13 14:04 | DI.RAD.S_ITS ---
PROCEDURE: XR KNEE RT 1TO2V INDICATIONS: R KNEE PAIN TECHNIQUE: 2 views of the knee were acquired. COMPARISON: None. FINDINGS: Bones: No fractures or dislocations. No suspicious bony lesions. Soft tissues: No joint effusion. No suspicious soft tissue calcifications. IMPRESSION: No acute bony abnormality or significant effusion. Dictated by: Kirt Mclean M.D. on 09/14/2024 at 3:49 Approved by: Kirt Mclean M.D. on 09/14/2024 at 3:49
== END ==
LOC: RAD 14:02
PROVIDERS: PCP Family Medicine; Referring Provider Family Medicine; Visit Provider Family Medicine
DX: M25.561 Pain in right knee (principal)
CPT/HCPCS: 73560; 73565

== ENCOUNTER → 2024-09-20 12:09 | Outpatient (CLI) | payer MEDICARE, SELFPAY ==
--- NOTE | 2024-09-20 12:11 | DI.ECHO.S_ITS ---
[facility]+ [facility] : : [id number] : : [place] : : [id number] : : Phone: [phone] Echocardiogram Report + + :Name: HEATHER BECKMAN Study Date: 09/20/2024 Height: 64 in : :Hospital ReadingLocation: Weight: 260 lb : : Gender: Female BSA: 2.2 m2 : :: 1985 Age: 39 yrs BP: 122/86 mmHg: :Reason For Study: HYPERTENSION, FAMILY HX OF BICUSPID AORTIC : :VALVE : :Ordering Physician: CASI, : :JENIFFER Hamilton Performed By: Flory Jackson : :Referring: JENIFFER LANCE : + + Interpretation Summary 1. The left ventricular contractility is normal. Estimate ejection fraction is greater than 65% with no segmental wall motion abnormalities. No LVH. Normal diastolic function. 2. The right ventricular contractility is normal. 3. All cardiac chambers are of normal size. 4. The aortic valve was not well-visualized. Cannot exclude bicuspid aortic valve. However no significant stenosis nor insufficiency appreciated. 5. No other significant valvular abnormalities noted. 6. No obvious intracardiac shunts. 7. No obvious intracardiac masses nor thrombi. 8. No hemodynamically significant pericardial effusion. 9. Low right-sided filling pressures. Conclusion: Normal biventricular function with no significant valvular abnormalities. Cannot exclude bicuspid aortic valve due to poor visualization. Procedure: A two-dimensional transthoracic echocardiogram with color flow and Doppler was performed. There is no prior echocardiogram noted for this patient. Images from the parasternal window were difficult to obtain and are suboptimal in quality. The patient was in sinus rhythm with heart rates between 52-66 bpm during the exam. Left Ventricle: The left ventricle is normal in size and wall thickness. The ejection fraction is estimated to be 65-70%. Diastolic parameters suggest probable normal left ventricular diastolic function and normal filling pressures. Right Ventricle: The right ventricle is normal in size and function. Atria: The left atrial size is normal. Right atrial size is normal. There is no Doppler evidence for an interatrial shunt. Mitral Valve: The mitral valve leaflets appear to open well. There is no mitral regurgitation noted. Aortic Valve: The aortic valve is not well visualized. The aortic valve opens well. There is no aortic valve stenosis. There is trace aortic regurgitation. Tricuspid Valve: The tricuspid valve leaflets are thin and pliable. No tricuspid regurgitation. Pulmonary artery pressures cannot be estimated because of the lack of a measurable TR jet velocity. Pulmonic Valve: The pulmonic valve is not well visualized. There is no pulmonic valvular regurgitation. Great Vessels: The aortic root is normal size. The ascending aorta could not be visualized. The IVC is of normal diameter and collapses greater than 50% with a sniff. This suggests a low right atrial pressure of 3 mm Hg. Pericardium/ Pleura There is no pericardial effusion. There is no pleural effusion. MMode/2D Measurements & Calculations LVIDd: 5.0 cm LVOT diam: 2.0 cm LVIDs: 3.1 cm Ao Arch Diam (Prox Trans): 3.0 cm FS: 38.5 % IVSd: 1.0 cm LVPWd: 0.66 cm LV parr. diameter/BSA (cm/m^2): 2.3 LV sys. diameter/BSA (cm/m^2): 1.4 LA A2 area: 16.8 cm2 RA long axis: 4.8 cm LA A4 area: 17.1 cm2 RA area: 14.5 cm2 LA length (vol): 5.7 cm RA vol: 37.7 ml LA vol: 43.0 ml RA : 17.2 ml/m2 LA vol index: 19.7 ml/m2 IVC diam: 1.2 cm RVD1 (basal): 3.9 cm RVD2 (mid): 2.5 cm TAPSE: 2.4 cm Doppler Measurements & Calculations Ao V2 max: 151.6 cm/sec LVOT Max Virgil: 121.8 cm/sec Ao V2 mean: 104.2 cm/sec LV V1 max P.9 mmHg Ao max P.2 mmHg LV V1 VTI: 25.7 cm Ao mean P.9 mmHg MIN(I,D): 2.7 cm2 Ao V2 VTI: 30.5 cm MIN(V,D): 2.5 cm2 sev ratio: 0.84 MIN indexed to BSA (cm^2/m^2): 1.2 MV E max virgil: 78.5 cm/sec PA V2 max: 90.4 cm/sec MV A max virgil: 41.9 cm/sec PA V2 mean: 61.9 cm/sec MV E/A: 1.9 PA mean P.7 mmHg Med Peak E' Virgil: 12.0 cm/sec PA pr(Accel): 27.6 mmHg E/E' med: 6.6 Lat Peak E' Virgil: 17.5 cm/sec E/E' lat: 4.5 E/e' average: 5.5 MV dec time: 0.16 sec SV(LVOT): 81.2 ml Reading Physician:JAY
== END ==
PROVIDERS: PCP Family Medicine; Referring Provider Family Medicine; Visit Provider Family Medicine
DX: I10 Essential (primary) hypertension (principal); Z82.79 Family history of other congenital malformations, deformations and chromosomal abnormalities
CPT/HCPCS: 93306

== ENCOUNTER → 2024-10-11 08:23 | Outpatient (CLI) | payer MEDICARE, SELFPAY ==
--- NOTE | 2024-10-11 08:50 | DI.MG.S_ITS ---
MM screening mammo BI: 10/11/2024. BI-RADS: 1 CLINICAL: 39-year old female for bilateral screening mammogram. Tyrer-Cuzick lifetime risk of 42.2%. Current reported family history of breast cancer: mother and paternal aunt. PRIOR EXAMS No prior examinations available. MAMMOGRAPHY TECHNIQUE: 2D and 3D (tomosynthesis) digital mammographic views obtained, with additional images as needed for full coverage. Current study was also evaluated with a Computer Aided Detection (CAD) system. DENSITY A. The breasts are almost entirely fatty. MAMMOGRAPHY FINDINGS Bilateral: No suspicious mass, asymmetry, microcalcification, or other abnormality seen. IMPRESSION: * No evidence of malignancy. RECOMMENDATIONS Bilateral * According to the Tyrer-Cuzick Risk Assessment Model, based on the information provided your patient has a greater than 20% lifetime risk for developing breast cancer. Consider supplemental screening with breast MRI and participation in a high risk screening program. * Annual screening mammography. OVERALL ASSESSMENT CATEGORY BI-RADS-1: Negative. The [employer] recommends annual screening mammography beginning at age 40 for women with average risk of breast cancer. ELECTRONICALLY SIGNED: Libertad Pineda M.D. on 10/11/2024 at 05:31:42 PM PT Interpreting Station ID: [id number]
== END ==
PROVIDERS: PCP Family Medicine; Referring Provider Family Medicine; Visit Provider Family Medicine
DX: Z12.31 Encounter for screening mammogram for malignant neoplasm of breast (principal); Z80.3 Family history of malignant neoplasm of breast; R92.313 Mammographic fatty tissue density, bilateral breasts
CPT/HCPCS: 77063; 77067